=== PATIENT | male | born 1960 | race Caucasian/White ===

== ENCOUNTER → 2016-10-02 | Outpatient (CLI) | payer BC ==
--- NOTE | 2016-10-02 20:25 | US ---
EXAMINATION TYPE: US kidneys/renal and bladder DATE OF EXAM: 10/02/2016 4:05 PM COMPARISON: NONE CLINICAL HISTORY: R31.21 microscopic Hematuria. EXAM MEASUREMENTS: Right Kidney: 12.7 x 7.8 x 5.6cm cm Left Kidney: 13.4 x 6.3 x 5.6 cm Post Void Residual Volume: 6.0 mL Right Kidney: no hydro or masses seen Left Kidney: 1.6 x 1.3 x 1..4cm cyst noted at lower cortex Bladder: wnl Bilateral Jets seen: yes Normal Post Void Residual: Yes There is no evidence for hydronephrosis at this point in time. No nephrolithiasis is seen. The urin candido bladder is anechoic. Bilateral ureteral jets are seen. IMPRESSION: 1. There is a 1.6 cm left simple renal cyst.
== END | disposition home or self-care (01) ==
LOC: RADUSWWP 15:17
PROVIDERS: ATTEND Internal Medicine
DX: N28.1 Cyst of kidney, acquired (principal)
CPT/HCPCS: 76770

== ENCOUNTER 2017-02-25 07:27 | Day surgery (SDC) | payer BC ==
[2017-02-21 11:49] VITALS: BMI 38.5
[~2017-02-25 07:27] MED LIST: LACTATED RINGERS 1,000 ML IV SCH
[2017-02-25 07:46] VITALS: RESP 16; TEMP 97.9
[2017-02-25 07:48] LABS: Glucose,Whole Blood 113 mg/dL (75-99)
[2017-02-25] MEDS ORDERED: MIDAZOLAM 2 MG/2 ML VIAL ONE (07:56)
[2017-02-25] MEDS ORDERED: PROPOFOL 10 MG/ML 20 ML VIAL IV ONE (07:56)
[2017-02-25] MEDS ORDERED: LIDOCAINE 1% INJ 10MG/ML (20 ML MDV) ONE (07:56)
--- NOTE | 2017-02-25 08:23 | P.PCN ---
Date of Procedure: 02/25/17 Preoperative Diagnosis: Postoperative Diagnosis: Procedure(s) Performed: Procedure: Total colonoscopy. Preoperative diagnosis: Screening for neoplasia. Postoperative diagnosis: Mild sigmoid diverticulosis with no evidence of acute diverticulitis, strictures, polyps or cancer. Preparation: HalfLytely prep. Sedation: Was provided by anesthesia. Brief clinical history: The patient is a 56-year-old male who is scheduled for this evaluation for screening for neoplasia. He had a prior exam back in October 2010 that showed sigmoid diverticulosis, at that time, his preparation was less than ideal. There is family history of polyps in his father but no family history of colon cancer. The patient has no abdominal complaints, bleeding or anemia. Procedure: With the patient on his left lateral decubitus position and after informed consent and adequate sedation, the perianal area was inspected and it did not show any fissures or fistulas. There were no masses felt on digital rectal examination. The Olympus CFQ 160L video colonoscope was then inserted in the rectum in the usual fashion and advanced to the cecum. The mucosa appeared healthy. No polyps or tumors were seen. Occasional small diverticular orifices were seen scattered in the sigmoid with no evidence of acute diverticulitis or strictures. I retroflexed the endoscope in the rectum before the endoscope was withdrawn. The patient tolerated the procedure well. Plan: The patient was reassured. Discussed dietary measures. In the absence of family history of colon cancer I recommended a repeat exam in 10 years. He will follow up with you as planned. Implants: Indications for Procedure: Operative Findings: Description of Procedure:
[2017-02-25 08:40] VITALS: BP 132/80; PULSE 62
== END 2017-02-25 09:05 | disposition home or self-care (01) ==
LOC: ORWHC2ENDO 07:27
DX: Z12.11 Encounter for screening for malignant neoplasm of colon (principal); K57.30 Diverticulosis of large intestine without perforation or abscess without bleeding; E11.9 Type 2 diabetes mellitus without complications; K21.9 Gastro-esophageal reflux disease without esophagitis; I10 Essential (primary) hypertension; M19.90 Unspecified osteoarthritis, unspecified site; G25.81 Restless legs syndrome; M54.9 Dorsalgia, unspecified; G89.29 Other chronic pain; Z79.891 Long term (current) use of opiate analgesic; Z79.899 Other long term (current) drug therapy
CPT/HCPCS: J2250; J2001; J2704; G0121

== ENCOUNTER → 2017-10-31 | Outpatient (CLI) | payer BC ==
--- NOTE | 2017-10-31 15:03 | CT ---
EXAMINATION TYPE: CT thoracic spine wo con DATE OF EXAM: 10/31/2017 COMPARISON: MRI 07/03/2017 HISTORY: 57-year-old male Thoracic spine pain TECHNIQUE: Contiguous axial scanning of the thoracic spine without IV contrast. Coronal and sagittal reconstructions performed. CT DLP: 2433.6 mGycm Automated exposure control for dose reduction was used. FINDINGS: Vertebral body heights are maintained. Alignment is preserved. Prominent superior endplate Schmorl's node of T12. There is bridging anterior endplate spondylosis lower thoracic spine which can be seen in setting of DISH. Large right paracentral disc osteophyte complex at T3-T4 mildly narrowing the spinal canal likely fla ttening the right ventral cord as seen on MRI. Additional levels of small posterior disc osteophyte complexes are present such as at T5-T6, T6-T7, a nd T8-T9. These correspond with the disc bulge is seen on the 07/03/2017 MRI. Facet arthropathy lower lumbar spine greater on the left. On the left, changes result in moderate neuroforaminal stenosis at T2-T3 and mild at T10-T11. On the right, changes result in [id number] neural foraminal narrowing at T2-T3 and T3-T4. No prevertebral or paravertebral soft tissue abnormality seen. IMPRESSION: 1. BRIDGING ANTERIOR ENDPLATE SPONDYLOSIS LOWER THORACIC SPINE CAN BE SEEN IN THE SETTING OF DISH. 2. CHRONIC SUPERIOR ENDPLATE SCHMORL'S NODE OF T12. NO VERTEBRAL COMPRESSION COLLAPSE OR MALALIGNMENT . 3. LARGE RIGHT PARACENTRAL DISC OSTEOPHYTE COMPLEX AT T3-T4 CORRESPONDS TO THE FINDING ON MRI. THIS C AUSES MILD SPINAL CANAL STENOSIS WITH FLATTENING OF THE RIGHT VENTRAL CORD, BETTER APPRECIATED BY MRI . 4. ADDITIONAL SMALLER DISC OSTEOPHYTE COMPLEXES FROM T5 THROUGH T9 LEVELS. 5. FACET ARTHROPATHY CONTRIBUTING TO MODERATE LEFT NEURAL FORAMINAL STENOSIS AT T2-T3. VARIABLE MILD NEUROFORAMINAL NARROWING AT OTHER LEVELS ABOVE.
== END | disposition home or self-care (01) ==
LOC: RADCTMAIN 13:06
PROVIDERS: ATTEND Physical Medicine & Rehabilitation
DX: M48.04 Spinal stenosis, thoracic region (principal); M99.72 Connective tissue and disc stenosis of intervertebral foramina of thoracic region; M47.815 Spondylosis without myelopathy or radiculopathy, thoracolumbar region; M51.44 Schmorl's nodes, thoracic region; M46.94 Unspecified inflammatory spondylopathy, thoracic region; M48.062 Spinal stenosis, lumbar region with neurogenic claudication; M51.26 Other intervertebral disc displacement, lumbar region; M51.36 Other intervertebral disc degeneration, lumbar region; E11.42 Type 2 diabetes mellitus with diabetic polyneuropathy
CPT/HCPCS: 72128

== ENCOUNTER 2018-09-11 07:02 | Day surgery (SDC) | payer BC ==
[2018-09-08 16:17] VITALS: BMI 38.5
[2018-09-11 07:39] VITALS: TEMP 97.5
[2018-09-11] MEDS ORDERED: LIDOCAINE 1% 20 ML VIAL (10MG/ML) FOR IV START INTRADERMA ONE (07:42)
[2018-09-11] MEDS: LACTATED RINGERS 1,000 ML IV SCH ×2 (07:42→07:44)
[2018-09-11 07:47] LABS: Glucose,Whole Blood 100 mg/dL (75-99)
[2018-09-11 08:09] VITALS: RESP 16
--- NOTE | 2018-09-11 08:10 | P.PCN ---
Date of Procedure: 09/11/18 Procedure(s) Performed: Procedure: Esophagogastroduodenoscopy and biopsy. Preoperative diagnosis: Chronic reflux symptoms symptomatic despite therapy. Postoperative diagnosis: 1. Small hiatal hernia with no obvious esophagitis or complicated reflux disease. 2. Mild gastritis and duodenitis. 3. Multiple biopsies obtained from the duodenum, antrum and esophagus. Preparation and sedation: Was provided by anesthesia. Brief clinical history: The patient is a 58-year-old male with history of chronic reflux that has been maintained on omeprazole. He has been having recurrent episodes of nocturnal reflux waking him up from sleep. No dysphagia, bleeding or other alarm symptoms. This evaluation is to assess for esophagitis , complicated reflux disease or other pathology. Procedure: With the patient on his left lateral decubitus position and after informed consent and adequate sedation, I passed the Olympus GIF-H 190 video upper endoscope through the cricopharyngeus down the esophagus. GE junction was around 42-43 cm from the incisors and there was a small sliding hiatal hernia but no obvious esophagitis or complicated reflux disease. The endoscope was then passed into the stomach which was insufflated with air and inspected in detail including the retroflex view in the cardia. There was minimal mottling and erythema in the antrum but no ulcers or erosions. Pyloric channel did not show any ulcers. Duodenal bulb showed erythema and some mottling but no ulcers, erosions or bleeding. Post bulbar area and descending duodenum did not show obvious abnormalities. I obtained biopsies from the duodenum, antrum and esophagus then the endoscope was withdrawn. The patient tolerated the procedure well. Plan: The patient was reassured. He will continue antireflux diet and measures. Will await biopsy results and make additional recommendations. I will keep you updated on his progress.
[2018-09-11 08:20] LABS: Glucose,Whole Blood 102 mg/dL (75-99)
[2018-09-11 08:23] VITALS: BP 128/84; PULSE 57
== END 2018-09-11 08:56 | disposition home or self-care (01) ==
LOC: ORWHC2ENDO 07:02
DX: K29.70 Gastritis, unspecified, without bleeding (principal); K29.80 Duodenitis without bleeding; K44.9 Diaphragmatic hernia without obstruction or gangrene; E11.9 Type 2 diabetes mellitus without complications; I10 Essential (primary) hypertension; Z79.84 Long term (current) use of oral hypoglycemic drugs; Z79.899 Other long term (current) drug therapy
CPT/HCPCS: 43239; 88305; 88342

== ENCOUNTER → 2020-04-23 | Outpatient (CLI) | payer BC ==
--- NOTE | 2020-04-23 15:28 | MR ---
EXAMINATION TYPE: MR lumbar spine wo con DATE OF EXAM: 04/23/2020 COMPARISON: None HISTORY: Chronic LBP, BLE radic TECHNIQUE: Multiplanar, multisequence images of the lumbar spine were acquired. L1-L2: Posterior left paracentral disc herniation causes minimal anterior mass effect on the thecal s ac. No significant spinal stenosis or foraminal encroachment. L2-L3: Right posterior paracentral disc protrusion causes some slight anterior lateral mass effect on the thecal sac. No significant spinal stenosis or foraminal encroachment. L3-L4: Circumferential posterior disc bulge somewhat eccentric towards the right causing anterolatera l mass effect on the thecal sac, there is moderate to severe spinal stenosis. Hypertrophy of the liga mentum flavum causes some posterior lateral mass effect on the thecal sac. Circumferential extension disc causes some right-sided foraminal encroachment. L4-L5: There is hypertrophic change noted within the facets causing posterior lateral mass effect on the thecal sac, trefoil appearance of the thecal sac. There is some encroachment on the right neural foramen by the facet. Minimal posterior disc bulge causes only slight anterior mass effect on the the neo sac. No significant spinal stenosis. L5-S1: There is facet arthropathy change present. No significant spinal stenosis. No evident disc her niation, facet encroaches somewhat on the neural foramen greater on the right Lumbar segments are intact. No paraspinal masses are identified. Conus medullaris has a normal appe arance. Mild anterolisthesis grade 1 L4-5. Loss of disc height signal is present at L1-2, L3-4, L4-5. There is a spinal curvature. Abdominal aorta measures 3.3 cm in the infrarenal location. Common michelle c artery on the right measures approximately 2.3 cm. Probable exophytic cyst posteriorly at the left kidney. IMPRESSION: Degenerative disc disease, facet arthropathy, foraminal encroachment and spinal stenosis as described .Ectasia of the infrarenal abdominal aorta, right common iliac artery, consider follow-up.
== END | disposition home or self-care (01) ==
LOC: RADMRIMAIN 13:49
PROVIDERS: ATTEND Internal Medicine
DX: M48.061 Spinal stenosis, lumbar region without neurogenic claudication (principal); M51.36 Other intervertebral disc degeneration, lumbar region; M47.816 Spondylosis without myelopathy or radiculopathy, lumbar region; M47.817 Spondylosis without myelopathy or radiculopathy, lumbosacral region
CPT/HCPCS: 72148

== ENCOUNTER → 2021-03-18 | Outpatient (CLI) | payer BC ==
--- NOTE | 2021-03-19 04:58 | MR ---
EXAMINATION TYPE: MR thoracic spine wo con DATE OF EXAM: 03/18/2021 COMPARISON: None HISTORY: Chronic back pain. Multiplanar multiecho imaging of the thoracic spine without contrast. Thoracic vertebra have fairly normal alignment. There is mild multilevel thoracic disc space narrowin g. There is no compression fracture. I see no focal bone destruction. Thoracic spinal cord has fairly normal signal pattern. There is no edema. At T3-4 there is posterior disc herniation with some conta ct with the thoracic spinal cord. This is in the midline and towards the right side. There is some ef facement of the cord. There is no spinal mass. The posterior elements are intact. IMPRESSION: No fracture. Mild multilevel degenerative disc space narrowing. Focal posterior disc herniation at T3 -4 on the right side with some impingement on the thoracic spinal cord. There is also posterior mild disc herniation T6-7 and T7-T8 and T8-T9 without significant impingement on the spinal cord.
== END | disposition home or self-care (01) ==
LOC: RADMRIMAIN 11:38
PROVIDERS: ATTEND Physical Medicine & Rehabilitation
DX: M51.24 Other intervertebral disc displacement, thoracic region (principal); M51.34 Other intervertebral disc degeneration, thoracic region
CPT/HCPCS: 72146

== ENCOUNTER → 2021-04-19 | Outpatient (CLI) | payer BC ==
[2021-04-19 13:58] VITALS: BP 96/66; PULSE 68; RESP 18; TEMP 98.2
--- NOTE | 2021-04-19 14:22 | P.PAINCN ---
History of Present Illness - Reason for Consult Consult date: 04/19/21 lumbar back pain, and low thoracic pain - Chief Complaint lumbar back pain, and low thoracic area pain - History of Present Illness Mr. Verduzco is a [id number]-ksim-[id number] pleasantmalecame to the [facility] for initial evaluation for low thoracic pain, and lumbar back pain. Patient had a history of fall many years ago status post T12-L1, and L2 chronic compression deformity.. [facility]. Patient had recent right-sided S1 transforaminal epidural steroid injection on 02/02/2021 with 70% pain relief. Patient also had thoracic medial branch block more than 3 years ago with good pain relief. Patient came here today for thoracic medial branch block referred by [facility] pain physician. Patient has ongoing pain for many years. Patient describes pain is aching, throbbing, constant type of pain. Pain is radiating to right lower extremity sometimes causing numbness and tingling sensation. Patient rated pain levels are 7-8 out of 10 in severity. With the help of medications pain levels are 5-6out of 10 in severity. Activities making pain worse. Medications, resting , interventional procedures helping in relieving patient's pain. Patient pain some days better than others. Overall activities decreased secondary to pain. Because of the pain sometimes patient is feeling lack of sleep, interest, and energy. Denied any bowel or bladder problems at this time. Patient is not using any for walking support. Patient denied any suicidal ideas/homicidal ideas at this time. Patient denied any red flag symptoms related to pain. Review of Systems 1- Constitutional : Patient denies anorexia, no chills , no fever , no night sweats , no change of appetite, no lethargy 2- Ears : No ear ache , no tinnitus , no ear discharge , no change in hearing 3-Nose, Mouth ,Throat ; no bleeding gums, no sore throat , no epistaxis , no hoarseness , no nose pain , no voice change 4-Cardiovascular : Denies chest pain, denies lightheadedness , no orthopnea , no palpitation , no paroxysmal nocturnal dyspnea no syncope , no leg edema , no irregular heartbeat 5-Respiratory : Denies cough , no dyspnea , no hemoptysis , no sleep apnea, no wheezing , no excessive sputum 6-Gastrointestinal : No jaundice , no nausea , no vomiting ,No abdominal pain , no bloating , no coffee-ground emesis , no hematochezia , No melena , 7-Genitourinary : No hematuria , no discharge , no urinary frequency , no urinary hesitancy , no incontinence, No dysuria 8-Musculoskeletal : No gait dysfunction , report low back pain , 9- Neurological : no ataxia , no aphasia ,no balance difficulties , no change in visions , no change in speech , no tremor , no vertigo , no sezure , no memory loss 10-Psychatric : no anexity ,no depression , no suicidal ideation , no change in appetite , no memory loss , no hallucination 11- Endocrine : no cold intolerence , no nocturia , no polyuria , no polydypsia , no heat intolerance 12-Hematologic : no easy bleeding , no easy brusing , 13-Allergic / immunology : no angioedema , no wheezing ,no allergic rhinitis no glutean intolerence 14-Integumentary : no brttle nails , no change hair / nails , no hirsutism no depigmentation , no foot/leg ulcers Past Medical History Past Medical History: Diabetes Mellitus, GERD/Reflux, Hypertension, Musculoskeletal Disorder, Osteoarthritis (OA) Additional Past Medical History / Comment(s): NEUROPATHY, RLS, SPINAL STENOSIS, DDD, HX OF FX DISC, BACK PAIN, constipation. History of Any Multi-Drug Resistant Organisms: None Reported Past Surgical History: Appendectomy, Hernia Repair Additional Past Surgical History / Comment(s): BILATERAL THUMB SURGERY. Past Anesthesia/Blood Transfusion Reactions: No Reported Reaction Smoking Status: Former smoker - Past Family History Mother Family Medical History: CVA/TIA Medications and Allergies Home Medications Medication Instructions Recorded Confirmed Type HYDROcodone/APAP 7.5-325MG [[place] 1 tab PO BID 02/21/17 04/18/21 History 7.5-325] Hydrochlorothiazide 12.5 mg PO DAILY 02/21/17 04/18/21 History [hydroCHLOROthiazide] Metoprolol Succinate [Toprol XL] 50 mg PO HS 02/21/17 04/18/21 History Omeprazole 20 mg PO HS 02/21/17 04/18/21 History Pregabalin [Lyrica] 100 mg PO TID 02/21/17 04/18/21 History amLODIPine [Norvasc] 5 mg PO QAM 02/21/17 04/18/21 History rOPINIRole HCL [Requip] 0.5 mg PO HS 02/21/17 04/18/21 History sitaGLIPtin [Januvia] 100 mg PO DAILY 02/21/17 04/18/21 History Allergies Allergy/AdvReac Type Severity Reaction Status Date / Time No Known Allergies Allergy Verified 04/18/21 14:53 Physical Exam Vitals: Vital Signs Temp Pulse Resp BP Pulse Ox 04/19/21 13:51 98.2 F 68 18 96/66 96 General: Well-developed, well-nourished, no acute distress HEENT: Normocephalic, and atraumatic Neck: Supple, no neck swelling Psychiatric: Appropriate mood, and affect 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 Sensation grossly intact Lower extremity: Normal strength, and decreased range of motion secondary to pain Lumbar spine: Paravertebral tenderness: positive Lumbar facet load test : positive Sacroiliac joint tenderness: Positive Thigh thrust test: negative Multiple trigger point positive over lumbar, and thoracic area Lower thoracic spinal, and paraspinal muscle tenderness positive. Results Results: MRI of the lumbar spine done on 04/23/2020 showed degenerative disc disease, facet arthropathy, foraminal encroachment, no spinal canal stenosis. Mild anterolisthesis grade 1 L4-L5. Loss of disc height signal present at L1-L2, L3-L4, L4-L5. There is a spinal curvature. MRI of the thoracic spine done on 03/18/2021 showed No fracture. Mild multilevel degenerative disc space narrowing. Focal posterior disc herniation at T3-T4 on the right side with some impingement on the thoracic spinal cord. There is also posterior mild disc herniation at T6-T7, T7-T8, and T8-T9 level without significant impingement on spinal cord. Assessment and Plan Assessment: lumbar spondylosis without myelopathy Thoracic spondylosis without myelopathy Myofascial pain syndrome, and chronic pain syndrome Plan: #1 Opioid, and psychological risk tools, and scores were reviewed. Diagnoses, prognosis, and multiple treatment options including but not limited to physical therapy, interventional therapy, adjunct medication therapy, narcotic medication, and surgical options were discussed with the patient. And all questions were answered to the patient's satisfaction. #2 treatment plan agreement : Patient was thoroughly discussed regarding the treatment options, alternatives, and importance of exercises as tolerated. Patient clearly understood. #3 Patient was counseled on importance of regular exercise. Including el chi, aerobic exercises as tolerated. Which helps for chronic pain, and overall well- being. Patient also counseled regarding importance of weight control rolling chronic pain, and overall other health issues. By altering diet habits, minimizing sugar intake, and processed foods helps in minimizing Inflammation. Also discussed with the patient regarding intermittent fasting. #4 investigations: MAPS- reviewed , urine drug test- not done #5 diagnostic tests: none #6 consultation : none # 7 interventional procedures: bilateral T11-T12, T12-L1 medial branch block. Procedure, complications, alternatives discussed with the patient. #8 medications magnesium oxide 400 mg by mouth daily Medication side effects, complications, long-term consequences discussed with the patient. Patient recommended to contact the pain clinic if noticed any issues with given medications. #9 morphine milligrams equivalents dose ( MME) per day: 0 from the pain clinic # 10 TENS unit's, and percussion massage device #11 disposition: scheduled to follow up with pain clinic in 4 weeks duration. Time with Patient: Greater than 30 PQRS Measure Charge Sheet Measure #130: Documentation of Current Meds in Medical Chart: Patient's medications documented in chart Measure #226: Tobacco Use: Screen & Cessation Intervention: Pt not a tobacco user Measure #111: Pneumonia Vaccination: Pneumococcal vaccine NOT administered or previously given Measure #47: Advance Care Plan: Advance care planning discussed & documented, pt chose/unable to give Measure #412: Opioid Treatment Agreement: No documentation of signed opioid treatment agreement Measure #408: Opioid Therapy Follow-up Evaluation: Patient had NO f/u eval minimum every 3 months during opioid therapy Measure #317: Preventitive Care & Scrn High Bld Press & F/U: Pre-hypertensive or hypertensive BP documented, pt will f/u with PCP Measure #128: Body Mass Index (BMI) Screening & Follow-up: BMI documented ABOVE normal parameters - f/u documented Measure #131: Pain Assessment & Follow-up: Pain positive & plan documented Measure #431: Unhealthy Alcohol Use Preventative Care & Scrn: Patient not identified as an unhealthy alcohol user Mode of Arrival: Ambulatory - Pain Location Back Non-Pharmacological Interventions: Home Exercise, Ice, Inactivity, Physical Therapy, Stretching Pharmacological Interventions: Block, Epidural, Medication PQRS Narrative: Smoking Status Former smoker Blood Pressure 96/66 Pain Intensity [Back] 10 Scale Used Numeric (1 - 10) Hx Alcohol Use (MH) No Home Medications: Ambulatory Orders HYDROcodone/APAP 7.5-325MG [[place] 7.5-325] 1 tab PO BID 02/21/17 Hydrochlorothiazide [hydroCHLOROthiazide] 12.5 mg PO DAILY 02/21/17 Metoprolol Succinate [Toprol XL] 50 mg PO HS 02/21/17 Omeprazole 20 mg PO HS 02/21/17 Pregabalin [Lyrica] 100 mg PO TID 02/21/17 amLODIPine [Norvasc] 5 mg PO QAM 02/21/17 rOPINIRole HCL [Requip] 0.5 mg PO HS 02/21/17 sitaGLIPtin [Januvia] 100 mg PO DAILY 02/21/17
== END ==
LOC: PNWHC3 13:04
DX: M47.816 Spondylosis without myelopathy or radiculopathy, lumbar region (principal); M47.814 Spondylosis without myelopathy or radiculopathy, thoracic region; M79.18 Myalgia, other site; G89.4 Chronic pain syndrome; E11.9 Type 2 diabetes mellitus without complications; I10 Essential (primary) hypertension; M19.90 Unspecified osteoarthritis, unspecified site; Z87.891 Personal history of nicotine dependence
CPT/HCPCS: 99211

== ENCOUNTER 2021-06-02 11:07 | Day surgery (SDC) | payer BC ==
[2021-05-31 15:54] VITALS: BMI 37.2
[2021-06-02 12:02] LABS: Glucose,Whole Blood 118 mg/dL (75-99)
[2021-06-02 12:04] VITALS: TEMP 97.3
[2021-06-02] MEDS ORDERED: LACTATED RINGERS 1,000 ML IV ONE (12:05)
[2021-06-02] MEDS ORDERED: MIDAZOLAM 2 MG/2 ML VIAL ONE (12:38)
[2021-06-02] MEDS ORDERED: fentaNYL (PF) 50 MCG/ML 2 ML AMP ONE (12:38)
[2021-06-02] MEDS ORDERED: ROPIVACAINE 5MG/ML 20ML VIAL ONE (12:38)
[2021-06-02] MEDS ORDERED: methylPREDNISolone ACETATE 40 MG/ML 1 ML VIAL ONE (12:38)
--- NOTE | 2021-06-02 12:58 | P.PCN ---
Date of Procedure: 06/02/21 Procedure(s) Performed: PREOPERATIVE DIAGNOSIS : 1- Thoracic spondylosis with Facet Arthropathy without myelopathy . 2- Lumber spondylosis with lumbar facet arthropathy POSTOPERATIVE DIAGNOSIS: Same as preop diagnosis. PROCEDURE: Diagnostic bilateral T11, T12 , L1 medial branch block under fluoroscopy guidance(fluoroscopy images available in the radiology Department ) ( To target the facet joint between Bilateral T11-12 , T12-L1 ) ANESTHESIA:,monitered anesthesia care as per anesthesia department . EBL: Minimal COMPLICATION: None PROCEDURE INDICATION: Chronic low back pain secondary to Facet arthropathy unresponsive to conservative treatment. PROCEDURE DESCRIPTION: the patient was seen and identified in the preop holding area , risks and benefits and possible complications of the procedure and alternative were discussed with the patient, and the patient agreed to proceed with the procedure and signed the consent and vital signs monitored during the procedure and fluoroscopy was used to maximize the benefit and accuracy of the needle placement, and sedation was given to decrease patient anxiety, patient was taken to the procedure room and placed in prone position vital signs monitored in the back prepped with chlorhexidine X3 then under strict sterile technique using a right oblique fluoroscopy ,the junction of the transverse process and the superior articulating process of the right R11, T12 ,L1 vertebra which corresponding to the fluoroscopy image of the eye of the Saravanan dog on the block side for the medial branches and subsequently , after local infiltration of skin and subcu tissuies with Ropivacaine 0.5 % , one mL at each level ,then 22-gauge Quincke-type needles , 3 needle was used , each one of them placed at the junction of the base of the transverse process and the superior articular process at the appropriate level, and the needle was advanced until the periosteum contacted, needle placement confirmed with AP oblique and lateral view and after appropriate needle placement confirmed, and after negative aspiration for heme and CSF and there was no paresthesia 1-1/2 mL of Ropivacaine 0.5% mixed with 20 mg Depo-Medrol , then half mL injected at each level after negative aspiration the needle subsequently removed and the same procedure repeated for the left side at left side at T11 ,T12 ,L1 levels. At the end of the procedure and the needles removed and a bandage applied after the skin was cleaned the cleaning solution patient taken to recovery room in stable condition and monitors in the recovery room for 20-30 minutes and discharged home in stable condition after discharge criteria met and patient will follow up with the pain clinic in 2-4 weeks
[2021-06-02] MEDS ORDERED: IV FLUID CONTINUATION 600 ML IV ONE (13:05)
[2021-06-02 13:22] VITALS: BP 131/75; PULSE 56; RESP 16
--- NOTE | 2021-06-02 13:43 | XR ---
EXAMINATION TYPE: XR chest 1V portable DATE OF EXAM: 06/02/2021 COMPARISON: NONE HISTORY: Rule out pneumothorax TECHNIQUE: Single frontal view of the chest is obtained. FINDINGS: There is no focal air space opacity, pleural effusion, or pneumothorax seen. The cardiac silhouette size is within normal limits. The osseous structures are intact. IMPRESSION: No acute process.
--- NOTE | 2021-06-02 14:25 | FL ---
EXAMINATION TYPE: FL guided pain mgmt statistic DATE OF EXAM: 06/02/2021 CLINICAL HISTORY: Low back pain. TECHNIQUE: Fluoroscopy. COMPARISON: None. FINDINGS: Fluoroscopic guidance was provided during pain relief procedure performed by Dr. Orlando . A total of 13 seconds of fluoroscopic time was utilized during the procedure and 4 spot images are acquired. Images acquired shows needle localization at several levels in the lumbar spine. IMPRESSION: As Above.
== END 2021-06-02 14:06 | disposition home or self-care (01) ==
LOC: ORPAIN 11:07
PROVIDERS: ATTEND Specialist
DX: M47.814 Spondylosis without myelopathy or radiculopathy, thoracic region (principal); G89.29 Other chronic pain; M47.816 Spondylosis without myelopathy or radiculopathy, lumbar region
CPT/HCPCS: 64490; 64491; 71045; J2250; J1030; J3010; J2795

== ENCOUNTER → 2021-07-10 | Outpatient (CLI) | payer BC ==
--- NOTE | 2021-07-10 12:43 | P.PN ---
Subjective Progress Note Date: 07/10/21 This is a follow-up visit for this 60 years old male with a chronic history of severe mid and low back pain he statesthoracic and lumbar spondylosis with facet arthropathy thoracic and lumbar area, and clearly we have done diagnostic medial branch blocks at T11-T12 and L1 bilaterally, reported that he got significant improvement of his pain after the block, he to have occasional muscle spasm in the lower extremity mostely at night, denies any motor or sensory deficit, denies any fever or night sweats, he continues to use Lyrica as an milligrams 3 times a day and [place] 7.5/325 twice a day when necessary , he is getting prescription refill from his primary care, Clinical examination General: Well-developed, well-nourished, no acute distress HEENT: Normocephalic, and atraumatic Neck: Supple, no neck swelling Psychiatric: Appropriate mood, and affect [employer]: No focal neurological deficits Musculoskeletal: Upper extremity: Normal strength, and range of motion. Sensation grossly intact Lower extremity: Normal strength, and decreased range of motion secondary to pain Lumbar spine: Paravertebral tenderness: positive Lumbar facet load test : positive Sacroiliac joint tenderness: Positive Thigh thrust test: negative Multiple trigger point positive over lumbar, and thoracic area Lower thoracic spinal, and paraspinal muscle tenderness positive. Results MRI of the lumbar spine done on 04/23/2020 showed degenerative disc disease, facet arthropathy, foraminal encroachment, no spinal canal stenosis. Mild anterolisthesis grade 1 L4-L5. Loss of disc height signal present at L1-L2, L3-L4, L4-L5. There is a spinal curvature. MRI of the thoracic spine done on 03/18/2021 showed No fracture. Mild multilevel degenerative disc space narrowing. Focal posterior disc herniation at T3-T4 on the right side with some impingement on the thoracic spinal cord. There is also posterior mild disc herniation at T6-T7, T7-T8, and T8-T9 level without significant impingement on spinal cord. Assessment: lumbar spondylosis without myelopathy Thoracic spondylosis without myelopathy Myofascial pain syndrome, and chronic pain syndrome Plan: #1 Opioid, and psychological risk tools, and scores were reviewed. Diagnoses, prognosis, and multiple treatment options including but not limited to physical therapy, interventional therapy, adjunct medication therapy, narcotic medication, and surgical options were discussed with the patient. And all questions were answered to the patient's satisfaction. #2 treatment plan agreement : Patient was thoroughly discussed regarding the treatment options, alternatives, and importance of exercises as tolerated. Patient clearly understood. #3 Patient was counseled on importance of regular exercise. Including el chi, aerobic exercises as tolerated. Which helps for chronic pain, and overall well- being. Patient also counseled regarding importance of weight control rolling chronic pain, and overall other health issues. By altering diet habits, minimizing sugar intake, and processed foods helps in minimizing Inflammation. Also discussed with the patient regarding intermittent fasting. # interventional procedures: repeate bilateral T11-T12, T12-L1 medial branch block. Procedure, complications, alternatives discussed with the patient. PQRS Measure Charge Sheet Measure #130: Documentation of Current Meds in Medical Chart: Patient's medications documented in chart Measure #226: Tobacco Use: Screen & Cessation Intervention: Pt not a tobacco user Measure #111: Pneumonia Vaccination: Pneumococcal vaccine NOT administered or previously given Measure #47: Advance Care Plan: Advance care planning discussed & documented, pt chose/unable to give Measure #412: Opioid Treatment Agreement: No documentation of signed opioid treatment agreement Measure #408: Opioid Therapy Follow-up Evaluation: Patient had NO f/u eval minimum every 3 months during opioid therapy Measure #317: Preventitive Care & Scrn High Bld Press & F/U: Pre-hypertensive or hypertensive BP documented, pt will f/u with PCP Measure #128: Body Mass Index (BMI) Screening & Follow-up: BMI documented ABOVE normal parameters - f/u documented Measure #131: Pain Assessment & Follow-up: Pain positive & plan documented Measure #431: Unhealthy Alcohol Use Preventative Care & Scrn: Patient not identified as an unhealthy alcohol user Mode of Arrival: Ambulatory Assessment and Plan Time with Patient: Less than 30
[2021-07-10 12:45] VITALS: BP 148/79; PULSE 76; RESP 18; TEMP 97.6
== END ==
LOC: PNWHC3 12:02
PROVIDERS: ATTEND Specialist
DX: M47.816 Spondylosis without myelopathy or radiculopathy, lumbar region (principal); M47.814 Spondylosis without myelopathy or radiculopathy, thoracic region; M79.18 Myalgia, other site; G89.4 Chronic pain syndrome; Z87.891 Personal history of nicotine dependence
CPT/HCPCS: 99211

== ENCOUNTER 2021-09-15 11:26 | Day surgery (SDC) | payer BC ==
[2021-09-14 10:43] VITALS: BMI 35.9
[2021-09-15 12:02] VITALS: TEMP 97.1
[2021-09-15] MEDS ORDERED: LACTATED RINGERS 1,000 ML IV ONE (12:13)
[2021-09-15 12:14] LABS: Glucose,Whole Blood 120 mg/dL (75-99)
[2021-09-15] MEDS ORDERED: fentaNYL (PF) 50 MCG/ML 2 ML AMP ONE (12:38)
[2021-09-15] MEDS ORDERED: MIDAZOLAM 2 MG/2 ML VIAL ONE (12:38)
[2021-09-15] MEDS ORDERED: ROPIVACAINE 5MG/ML 20ML VIAL ONE (12:39)
[2021-09-15] MEDS ORDERED: methylPREDNISolone ACETATE 40 MG/ML 1 ML VIAL ONE (12:39)
--- NOTE | 2021-09-15 12:59 | P.PCN ---
Date of Procedure: 09/15/21 Procedure(s) Performed: PREOPERATIVE DIAGNOSIS : 1- Thoracic spondylosis with Facet Arthropathy without myelopathy . 2- Lumber spondylosis with lumbar facet arthropathy POSTOPERATIVE DIAGNOSIS: Same as preop diagnosis. PROCEDURE: Diagnostic bilateral T11, T12 , L1 medial branch block under fluoroscopy guidance(fluoroscopy images available in the radiology Department ) ( To target the facet joint between Bilateral T11-12 , T12-L1 )#2nd ANESTHESIA:,monitered anesthesia care as per anesthesia department . EBL: Minimal COMPLICATION: None PROCEDURE INDICATION: Chronic low back pain secondary to Facet arthropathy unresponsive to conservative treatment. PROCEDURE DESCRIPTION: the patient was seen and identified in the preop holding area , risks and benefits and possible complications of the procedure and alternative were discussed with the patient, and the patient agreed to proceed with the procedure and signed the consent and vital signs monitored during the procedure and fluoroscopy was used to maximize the benefit and accuracy of the needle placement, and sedation was given to decrease patient anxiety, patient was taken to the procedure room and placed in prone position vital signs monitored in the back prepped with chlorhexidine X3 then under strict sterile technique using a right oblique fluoroscopy ,the junction of the transverse process and the superior articulating process of the right R11, T12 ,L1 vertebra which corresponding to the fluoroscopy image of the eye of the Saravanan dog on the block side for the medial branches and subsequently , after local infiltration of skin and subcu tissuies with Ropivacaine 0.5 % , one mL at each level ,then 22-gauge Quincke-type needles , 3 needle was used , each one of them placed at the junction of the base of the transverse process and the superior articular process at the appropriate level, and the needle was advanced until the periosteum contacted, needle placement confirmed with AP oblique and lateral view and after appropriate needle placement confirmed, and after negative aspiration for heme and CSF and there was no paresthesia 1-1/2 mL of Ropivacaine 0.5% mixed with 20 mg Depo-Medrol , then half mL injected at each level after negative aspiration the needle subsequently removed and the same procedure repeated for the left side at left side at T11 ,T12 ,L1 levels. At the end of the procedure and the needles removed and a bandage applied after the skin was cleaned the cleaning solution patient taken to recovery room in stable condition and monitors in the recovery room for 20-30 minutes and discharged home in stable condition after discharge criteria met and patient will follow up with the pain clinic in 2-4 weeks
[2021-09-15] MEDS ORDERED: IV FLUID CONTINUATION 1,000 ML IV ONE (13:02)
[2021-09-15 13:19] VITALS: BP 121/77; PULSE 59; RESP 16
--- NOTE | 2021-09-15 13:36 | FL ---
Fluoroscopy History: THORACIC PAIN facet steroid injection 3 levels, bilateral, 7sec fl time
== END 2021-09-15 13:34 | disposition home or self-care (01) ==
LOC: ORPAIN 11:26
PROVIDERS: ATTEND Specialist
DX: G89.29 Other chronic pain (principal); M47.816 Spondylosis without myelopathy or radiculopathy, lumbar region; M47.814 Spondylosis without myelopathy or radiculopathy, thoracic region
CPT/HCPCS: 64490; 64491; J2250; J1030; J3010; J2795

== ENCOUNTER → 2021-10-04 | Outpatient (CLI) | payer BC ==
--- NOTE | 2021-10-04 13:14 | P.PN ---
Subjective Progress Note Date: 10/04/21 Principal diagnosis: A 61 yr old male with a history of severe and chronic mid back pain secondary to thoracic degenerative disc diseases and spondylosis with facet arthropathy presents today for valuation status post facet blocks of the medial branches bilateral T11-T12, T12-L1 #2. Patient admits to 85-90% pain relief for 2-3 days, then the pain started to escalate thereafter. Pain level is currently at 4 out of 10 in intensity, dull, achy, twisty, pressure-type sensation. Patient also states it feels like a "fist in my back." Pain is provoked to a 10 /10 in intensity by abduction of the upper extremities or sitting upright for periods of 30 minutes or more. Pain is alleviated with medications, topicals CBD cream, ice, heat occasionally, physical therapy 7 years ago which was ineffective, daily home exercise regimen, laying reclining and rest. Interventional pain procedures completed include FB of the Medial Branches T11- T12, T12-L1 #2. Patient is currently on [place] BID prn. Lyrica, Tylenol OTC. Patient denies any side effects of the medication(s), denies excessive drowsiness or sleepiness, denies suicidal ideation and reports that the current pain medication is helping to control the pain and improve activities of daily living. Patient denies any motor or sensory deficits. Patient denies any fever or night sweats, denies any change in the bowel movements or urination. Physical Examination: -Constitutional: Cooperative. Not in acute distress . -HEENT: Neck is supple. No lymphadenopathy. No thyromegaly. Normal thyroid size. Eyes: No ptosis , no icterus, no photophobia. ENT: No auditory deficits. Normal oropharynx. No Thrush. - Respiratory: Chest clear to auscultations bilaterally. No wheezing. No rhonchi. - Cardiovascular: Regular rate and rhythm. S1 / S2 , no S3 , no S4. - Gastrointestinal: Abdomen soft no tenderness. Bowel sounds positive in all four quadrants. No organomegaly. - Genitourinary: Deferred. - Neurologic: Cranial nerve II to XII intact. No focal neurological deficits . - Psychatric: Alert & oriented x 3. Matching mood & appropriate affect. Judgment and insight intact. - Lymphatic: No Lymphadenopathy. - Musculoskeletal: Cervical spine: Muscle bulk/ tone/ strength in the bilateral upper extremities normal. Facet loading test cervical area positive. Thoracic spine: Tenderness to palpation over the bilateral facets T11-T12, T12-L1 with overlying paraspinal muscle spasms Lumbar spine: Motor bulk/ tone/ strength lower extremities , thigh and legs : 5/5 Deep tendon reflexes : Normal Knee Jerk. Normal Ankle Jerk . Vertebral body tenderness to palpation over Lumbar Facet Loading Test positive Straight Leg Raise: positive at 30 degrees right side/ left side Gaenslen's Test positive Sacral spine : Severe tenderness over the Sacroiliac joint: right side / left side Range of motion: Flexion of the lumbar spine <60 degrees Range of motion: Extension of the lumbar spine <20 degrees Gaenslen's Test positive Karen test: positive right side / left side Assessment and plan: Chronic mid back pain secondary to thoracic degenerative disc disease , spondylosis with facet arthropathy without myelopathy Recommendation of RFA of bilateral T11-T12, T12 L1. Risks, benefits of procedure discussed and patient verbalized understanding. Denies anticoagulant use. Admits to medical history of diabetes with Januvia use. Discontinuation/ continuation instructions lisa-procedure discussed. All patient questions answered MAPS reviewed and it was appropriate. I have spent 31 minutes on patient care today. Dr Orlando was available by phone for the evaluation of this patient. The time was used to review the medical records including relevant urine studies and Prescription history (MAPs), review of the available imaging, evaluation and examination of the patient, coordination of care with the medical staff and if applicable referring physicians, as well as creation of the medical record PQRS Measure Charge Sheet PQRS Narrative: Smoking Status Former smoker Hx Alcohol Use (MH) No Home Medications: Ambulatory Orders HYDROcodone/APAP 7.5-325MG [[place] 7.5-325] 1 tab PO BID 02/21/17 Hydrochlorothiazide [hydroCHLOROthiazide] 12.5 mg PO DAILY 02/21/17 Metoprolol Succinate [Toprol XL] 50 mg PO HS 02/21/17 Pregabalin [Lyrica] 100 mg PO TID 02/21/17 amLODIPine [Norvasc] 5 mg PO QAM 02/21/17 rOPINIRole HCL [Requip] 0.5 mg PO HS 02/21/17 sitaGLIPtin [Januvia] 100 mg PO DAILY 02/21/17 Zantac Otc Prn 1 tab PO DAILY PRN 09/14/21
[2021-10-04 13:22] VITALS: BP 147/87; PULSE 59; RESP 18; TEMP 98
== END ==
LOC: PNWHC3 12:00
PROVIDERS: ATTEND Physician Assistant Medical
DX: M47.814 Spondylosis without myelopathy or radiculopathy, thoracic region (principal); M51.34 Other intervertebral disc degeneration, thoracic region; G89.29 Other chronic pain; E11.9 Type 2 diabetes mellitus without complications; Z79.84 Long term (current) use of oral hypoglycemic drugs; Z87.891 Personal history of nicotine dependence
CPT/HCPCS: 99211

== ENCOUNTER → 2021-11-10 | Day surgery (SDC) | payer BC ==
[2021-11-08 15:34] VITALS: BMI 35.9
[~2021-11-10] MED LIST changes: +IV FLUID CONTINUATION 800 ML IV ONE; +LIDOCAINE 1% (10MG/ML) FOR IV START INTRADERMA PRN; +MIDAZOLAM 2 MG/2 ML VIAL ONE; +ROPIVACAINE 5MG/ML 20ML VIAL ONE; +fentaNYL (PF) 50 MCG/ML 2 ML AMP ONE; +methylPREDNISolone ACETATE 40 MG/ML 1 ML VIAL ONE
[2021-11-10 12:06] VITALS: TEMP 98
[2021-11-10 12:06] LABS: Glucose,Whole Blood 128 mg/dL (75-99)
--- NOTE | 2021-11-10 13:06 | P.PCN ---
Date of Procedure: 11/10/21 Procedure(s) Performed: PREOPERATIVE DIAGNOSIS: 1-thoracic Spondylosis with Facet Arthropathy without myelopathy. 2- Lumber lumbar lordosis with lumbar facet arthropathy POSTOPERATIVE DIAGNOSIS: Same as preoperative diagnosis. PROCEDURES : Bilateral Radiofrequency thermocoagulation, T11, T12 ,L1 medial branch, with fluoroscopic guidance (fluoroscopy images available in the radiology department) ( to denervate the facet joint at BILATERAL T11-12, T12-L1 ). ANESTHESIA: Monitored anesthesia care as per anesthesia department . EBL: Minimal PROCEDURE INDICATION: The patient with low back pain secondary to lumbar facet arthropathy who had more than 50% relief of her pain with previous diagnostic lumbar medial branch block with bupivacaine. PROCEDURE DESCRIPTION / TECHNIQUE: The patient was seen and identified in the preoperative area. Risks, benefits, complications, including but not limited to risk of infection ,bleeding , allergic reactions to the medications and no complete pain releife , and alternatives were discussed with the patient, the p atient agreed to proceed with the procedure and signed the consent. IV was started. Vital signs remained stable throughout the procedure. Patient was taken to the OR and time out was completed. The patient was placed in the prone position on the procedure table. The lumber area was prepped and draped in the usual sterile fashion. . Vital signs were closely monitored during the procedure .IV sedation was used during the procedure to decrease patients anxiety. Using AP and then oblique fluoroscopy, the ``eye of the Saravanan dog corresponding to the connection between the superior and transverse articular processes of right T11 ,T12 ,L1 were identified, marked, and localized with 1% lidocaine. Subsequently, a 20 [id number] radiofrequency cannula with a 10-mm active tip was advanced guided by fluoroscopy to each of the``eyes of the Saravanan dog at right T11,T12 ,L1. Each site then underwent sensory testing at 50 Hz and 0 to 1 volt and motor testing at 2.5 Hz and 0 to 3 volt with local stimulation, but no radicular symptoms down the legs. Thereafter each sites underwent radiofrequency thermocoagulation at 80 degrees celsius for 90 seconds after injecting 0.5 ml of PF Ropivacaine 1ml, then after the thermocoagulation done , 1 ml of the block solution containing Depo-Medrol 20 mg and 3 ml of Ropivacaine 0.5% was injected at the right T11, T12 ,L1 , levels after negativ e aspiration of CSF and blood and with no paresthesias. Cannulas were retracted while injecting lidocaine 1% until the needle is out. The same procedure was repeated at the level of Left T11, T12 ,L1 levels. At the end of the procedure, the skin was cleansed and bandages were applied. COMPLICATIONS: No acute complications. DISPOSITION / PLANS: The patient was placed in a supine position and tra nsferred to the recovery area in a stable condition for observation and was discharged from the recovery room after meeting discharge criteria. Home discharge instructions given to the patient by the staff. The patient was reexamined prior to discharge. The patient will schedule a follow up in the clinic in 2-4 weeks.
--- NOTE | 2021-11-10 13:13 | FL ---
Fluoroscopy INDICATION: Pain FINDINGS: Fluoroscopy time: 18 seconds. Images obtained: 7. IMPRESSIONS: 1. Documentation of fluoroscopy.
--- NOTE | 2021-11-10 13:46 | XR ---
EXAMINATION TYPE: XR chest 1V portable DATE OF EXAM: 11/10/2021 COMPARISON: 06/02/2021 INDICATION: Pneumothorax, post pain management. TECHNIQUE: Single frontal view of the chest is obtained. FINDINGS: The heart size is normal. The pulmonary vasculature is normal. The lungs are clear. No suspicious pneumothorax is evident. IMPRESSION: 1. No acute pulmonary process.
[2021-11-10 14:18] VITALS: BP 134/81; PULSE 71; RESP 16
== END ==
LOC: ORPAIN 11:45
PROVIDERS: ATTEND Specialist
DX: M47.814 Spondylosis without myelopathy or radiculopathy, thoracic region (principal)
CPT/HCPCS: 64633; 64634; 71045; J2250; J1030; J3010; J2795

== ENCOUNTER → 2021-11-30 | Outpatient (CLI) | payer BC ==
[2021-11-30 13:11] VITALS: BP 160/88; PULSE 63; RESP 18
--- NOTE | 2021-11-30 13:26 | P.PN ---
Subjective Progress Note Date: 11/30/21 Principal diagnosis: A 61 yr old male with a history of severe and chronic mid -low back pain secondary to thoracolumbar degenerative disc diseases and spondylosis with facet arthropathy presents today for evaluation status post bilateral RFA T11- T12, T12-L1. He states he expressed 85% pain relief status post procedure. Pain level is currently at 2 out of 10 in intensity, achy, sore in the lower aspects of the thoracic spine and upper aspects of his lumbar spine without radiation of pain. Pain escalates as high as 10 out of 10 in intensity with bending, twisting or lifting. Pain is relieved with medications, cannabis use, injections, alternating heat and ice the ice works better, physical therapy in the past which provided no relief, massage therapy integrated physical therapy and rest. Patient also states he received a steroid injection at [facility] this month but is unsure what it was. He is interested in getting an RFA for his lumbar spine. Will obtain records. Interventional pain procedures completed include RFA BL T11-T12, T12-L1 Patient is currently on [place], Neurontin by Dr Seymour Patient denies any side effects of the medication(s), denies excessive drowsiness or sleepiness, denies suicidal ideation and reports that the current pain medication is helping to control the pain and improve activities of daily living. Patient denies any motor or sensory deficits. Patient denies any fever or night sweats, denies any change in the bowel movements or urination. Physical Examination: -Constitutional: Cooperative. Not in acute distress . -HEENT: Neck is supple. No lymphadenopathy. No thyromegaly. Normal thyroid size. Eyes: No ptosis , no icterus, no photophobia. ENT: No auditory deficits. Normal oropharynx. No Thrush. - Respiratory: Chest clear to auscultations bilaterally. No wheezing. No rhonchi. - Cardiovascular: Regular rate and rhythm. S1 / S2 , no S3 , no S4. - Gastrointestinal: Abdomen soft no tenderness. Bowel sounds positive in all four quadrants. No organomegaly. - Genitourinary: Deferred. - Neurologic: Cranial nerve II to XII intact. No focal neurological deficits. - Psychatric: Alert & oriented x 3. Matching mood & appropriate affect. Judgment and insight intact. - Lymphatic: No Lymphadenopathy. - Musculoskeletal: Cervical spine: Muscle bulk/ tone/ strength in the bilateral upper extremities normal. Facet loading test cervical area positive. Lumbar spine: Motor bulk/ tone/ strength lower extremities , thigh and legs : 5/5 Deep tendon reflexes : Normal Knee Jerk. Normal Ankle Jerk . Vertebral body tenderness to palpation over Lumbar Facet Loading Test positive Straight Leg Raise: positive at 30 degrees right side/ left side Gaenslen's Test positive Sacral spine : Severe tenderness over the Sacroiliac joint: right side / left side Range of motion: Flexion of the lumbar spine <60 degrees Range of motion: Extension of the lumbar spine <20 degrees Gaenslen's Test positive Karen test: positive right side / left side Assessment and plan: Chronic mid-low back pain secondary to thoracolumbar degenerative disc disease , spondylosis with facet arthropathy without myelopathy Obtain records from [facility] for latest series of injection(s) of the lumbar spine. May return to the clinic within 4 week for a reevaluation. All patient questions answered I have spent 31 minutes on patient care today. Dr Orlando was available by phone for the evaluation of this patient. The time was used to review the medical records including relevant urine studies and Prescription history (MAPs), review of the available imaging, evaluation and examination of the patient, coordination of care with the medical staff and if applicable referring physicians, as well as creation of the medical record Objective - Vital Signs Vital signs: Vital Signs Temp Pulse 63 11/30/21 13:00 Resp 18 11/30/21 13:00 BP 160/88 11/30/21 13:00 Pulse Ox 95 11/30/21 13:00 PQRS Measure Charge Sheet Mode of Arrival: Ambulatory - Pain Location Back Non-Pharmacological Interventions: Heat, Home Exercise, Ice, Inactivity, Massage, Physical Therapy, Position/Reposition, Stretching Pharmacological Interventions: Block, PRN Medication, Scheduled Medication Lower Back Non-Pharmacological Interventions: Heat, Home Exercise, Ice, Inactivity, Massage, Physical Therapy, Position/Reposition, Stretching Pharmacological Interventions: PRN Medication, Scheduled Medication PQRS Narrative: Smoking Status Former smoker Blood Pressure 160/88 Pain Intensity [Lower Back] 4 Pain Intensity [Back] 2 Scale Used Numeric (1 - 10) Hx Alcohol Use (MH) No Home Medications: Ambulatory Orders HYDROcodone/APAP 7.5-325MG [[place] 7.5-325] 1 tab PO BID 02/21/17 Hydrochlorothiazide [hydroCHLOROthiazide] 12.5 mg PO DAILY 02/21/17 Metoprolol Succinate [Toprol XL] 50 mg PO HS 02/21/17 Pregabalin [Lyrica] 100 mg PO TID 02/21/17 amLODIPine [Norvasc] 5 mg PO QAM 02/21/17 rOPINIRole HCL [Requip] 0.5 mg PO HS 02/21/17 sitaGLIPtin [Januvia] 100 mg PO DAILY 02/21/17 Zantac Otc Prn 1 tab PO DAILY PRN 09/14/21
== END ==
LOC: PNWHC3 12:13
PROVIDERS: ATTEND Specialist
DX: M51.35 Other intervertebral disc degeneration, thoracolumbar region (principal); M47.815 Spondylosis without myelopathy or radiculopathy, thoracolumbar region; G89.29 Other chronic pain; M19.90 Unspecified osteoarthritis, unspecified site; Z87.891 Personal history of nicotine dependence
CPT/HCPCS: 99211

== ENCOUNTER → 2021-12-28 | Outpatient (CLI) | payer BC ==
[2021-12-28 12:30] VITALS: BP 157/93; PULSE 75; RESP 16; TEMP 97.8
--- NOTE | 2021-12-28 12:38 | P.PAINPG ---
PQRS Measure Charge Sheet Comment: A 61 yr old male with a history of severe and chronic low back pain secondary to lumbar degenerative disc diseases and lumbar spondylosis with facet arthropathy presents today for evaluation for lower back pain. Pain level is currently at 3 out of 10 in intensity, burning in character in the lower aspects of his lumbar spine and sacral area with radiation of electric pain down to the bilateral lower extremities. Pain is provoked by bending and lifting as his source of employment is [employer]. Pain is alleviated with medications, injections, ice, repositioning, laying supine and rest. Interventional pain procedures completed include BL RFA T11-T12, T12-L1 Patient is currently on [place], Lyrica from his PCP. Patient denies any side effects of the medication(s), denies excessive drowsiness or sleepiness, denies suicidal ideation and reports that the current pain medication is helping to control the pain and improve activities of daily living. Patient denies any motor or sensory deficits. Patient denies any fever or night sweats, denies any change in the bowel movements or urination. Physical Examination: -Constitutional: Cooperative. Not in acute distress . -HEENT: Neck is supple. No lymphadenopathy. No thyromegaly. Normal thyroid size. Eyes: No ptosis , no icterus, no photophobia. ENT: No auditory deficits. Normal oropharynx. No Thrush. - Respiratory: Chest clear to auscultations bilaterally. No wheezing. No rhonchi. - Cardiovascular: Regular rate and rhythm. S1 / S2 , no S3 , no S4. - Gastrointestinal: Abdomen soft no tenderness. Bowel sounds positive in all four quadrants. No organomegaly. - Genitourinary: Deferred. - Neurologic: Cranial nerve II to XII intact. No focal neurological deficits. - Psychatric: Alert & oriented x 3. Matching mood & appropriate affect. Judgment and insight intact. - Lymphatic: No Lymphadenopathy. - Musculoskeletal: Cervical spine: Muscle bulk/ tone/ strength in the bilateral upper extremities normal Vertebral body tenderness to palpation over Facet loading test positive Thoracic spine Muscle bulk / tone/ strength in the bilateral paraspinal muscles normal Vertebral body tender to palpation over Facet loading test positive Lumbar spine: Motor bulk/ tone/ strength lower extremities , thigh and legs : 5/5 Deep tendon reflexes : Normal Knee Jerk. Normal Ankle Jerk . Vertebral body tenderness to palpation over Lumbar Facet Loading Test positive over BL L4-L5, L5-S1 Straight Leg Raise: positive at 30 degrees right side/ left side Gaenslen's Test positive Sacral spine : Severe tenderness over the Sacroiliac joint: right side / left side Range of motion: Flexion of the lumbar spine <60 degrees Range of motion: Extension of the lumbar spine <20 degrees Gaenslen's Test positive Thomas's Test positive Karen test: positive right side / left side Thigh Thrust Test Sacral Thrust Test Assessment and plan: Chronic low back pain secondary to lumbar degenerative disc disease , lumbar spondylosis with facet arthropathy without myelopathy Recommendation of physical therapy integrated with massage re: M51.36 3 times per week 6 weeks. Patient may follow-up at this clinic within 6 weeks for reevaluation of pain level and discussion of further treatment options if necessary. Risks, benefits of procedure discussed and pt verbalized understanding. Denies anticoagulant use or medical history of diabetes. All patient questions answered MAPS reviewed and it was appropriate. I have spent 31 minutes on patient care today. Dr Orlando was available by phone for the evaluation of this patient. The time was used to review the medical records including relevant urine studies and Prescription history (MAPs), review of the available imaging, evaluation and examination of the patient, coordination of care with the medical staff and if applicable referring physicians, as well as creation of the medical record PQRS Narrative: Smoking Status Former smoker Hx Alcohol Use (MH) No Home Medications: Ambulatory Orders HYDROcodone/APAP 7.5-325MG [[place] 7.5-325] 1 tab PO BID 02/21/17 Hydrochlorothiazide [hydroCHLOROthiazide] 12.5 mg PO DAILY 02/21/17 Metoprolol Succinate [Toprol XL] 50 mg PO HS 02/21/17 Pregabalin [Lyrica] 100 mg PO TID 02/21/17 amLODIPine [Norvasc] 5 mg PO QAM 02/21/17 rOPINIRole HCL [Requip] 0.5 mg PO HS 02/21/17 sitaGLIPtin [Januvia] 100 mg PO DAILY 02/21/17 Zantac Otc Prn 1 tab PO DAILY PRN 09/14/21 Controlled Substance Measures - Controlled Substance Measures Is patient prescribed a controlled substance at discharge?: No
== END ==
LOC: PNWHC3 12:00
PROVIDERS: ATTEND Specialist
DX: M51.36 Other intervertebral disc degeneration, lumbar region (principal); M47.816 Spondylosis without myelopathy or radiculopathy, lumbar region; G89.29 Other chronic pain; Z87.891 Personal history of nicotine dependence
CPT/HCPCS: 99211

== ENCOUNTER → 2022-02-19 | Outpatient (CLI) | payer BC ==
[2022-02-19 14:15] VITALS: BP 136/83; PULSE 61; RESP 18; TEMP 97.8
--- NOTE | 2022-02-19 15:07 | P.PAINPG ---
PQRS Measure Charge Sheet Comment: A 61 yr old male with a history of severe and chronic low back pain secondary to lumbar degenerative disc diseases, disc herniation and lumbar spondylosis with facet arthropathy presents today for evaluation of lower back pain status post completion of physical therapy. Pain level is currently at 3/10 in intensity, constant, localized in lower back w radiation to R buttocks >L and occasionally to the feet BL. Pain is provoked by standing/walking for periods of 15 min or more. Pain is alleviated with PT for 6 weeks integrated with PT, medications ([place], Lyrica from his PCP), ice, heat, home exercise regimen, repositioning and rest. Interventional pain procedures completed include BL RFA T11-T12, T12-L1 Patient is currently on [place], Lyrica from his PCP Patient denies any side effects of the medication(s), denies excessive drowsiness or sleepiness, denies suicidal ideation and reports that the current pain medication is helping to control the pain and improve activities of daily living. Patient denies any motor or sensory deficits. Patient denies any fever or night sweats, denies any change in the bowel movements or urination. Physical Examination: -Constitutional: Cooperative. Not in acute distress . - Neurologic: Cranial nerve II to XII intact. No focal neurological deficits. - Psychatric: Alert & oriented x 3. Matching mood & appropriate affect. Judgment and insight intact. - Musculoskeletal: Cervical spine: Muscle bulk/ tone/ strength in the bilateral upper extremities normal Vertebral body tenderness to palpation over Spurling test positive Distraction test positive Facet loading test positive Thoracic spine Muscle bulk / tone/ strength in the bilateral paraspinal muscles normal Vertebral body tender to palpation over Facet loading test positive Lumbar spine: Motor bulk/ tone/ strength lower extremities , thigh and legs : 5/5 Deep tendon reflexes : Normal Knee Jerk. Normal Ankle Jerk . Vertebral body tenderness to palpation over Lumbar Facet Loading Test positive over BL L4-L5, L5-S1 w accompanying paraspinal TTP Straight Leg Raise: positive at 30 degrees right side/ left side Gaenslen's Test positive Sacral spine : Severe tenderness over the Sacroiliac joint: right side / left side Range of motion: Flexion of the lumbar spine <60 degrees Range of motion: Extension of the lumbar spine <20 degrees Gaenslen's Test positive Thomas's Test positive Karen test: positive right side / left side Thigh Thrust Test Sacral Thrust Test Assessment and plan: Chronic low back pain secondary to lumbar degenerative disc disease , lumbar spondylosis with facet arthropathy without myelopathy Recommendation of BL facet block of the medial branches L4-L5, L5-S1 #1. May need a series of injections, up until RFA, for optimal pain relief. Risks, benefits of procedure discussed and pt verbalized understanding. Denies anticoagulant use and admits to a medical history of diabetes. Protocol for discontinuation/ continuation of medications lisa procedure discussed. All patient questions answered MAPS reviewed and it was appropriate. I have spent less than 30 minutes on patient care today. Dr Orlando was available by phone for the evaluation of this patient. The time was used to review the medical records including relevant urine studies and Prescription history (MAPs), review of the available imaging, evaluation and examination of the patient, coordination of care with the medical staff and if applicable referring physicians, as well as creation of the medical record PQRS Narrative: Smoking Status Former smoker Hx Alcohol Use (MH) No Home Medications: Ambulatory Orders HYDROcodone/APAP 7.5-325MG [[place] 7.5-325] 1 tab PO BID 02/21/17 Metoprolol Succinate [Toprol XL] 50 mg PO HS 02/21/17 Pregabalin [Lyrica] 100 mg PO TID 02/21/17 amLODIPine [Norvasc] 5 mg PO QAM 02/21/17 hydroCHLOROthiazide 12.5 mg PO DAILY 02/21/17 rOPINIRole HCL [Requip] 0.5 mg PO HS 02/21/17 sitaGLIPtin [Januvia] 100 mg PO DAILY 02/21/17 Zantac Otc Prn 1 tab PO DAILY PRN 09/14/21 Controlled Substance Measures - Controlled Substance Measures Is patient prescribed a controlled substance at discharge?: No
== END ==
LOC: PNWHC3 11:00
PROVIDERS: ATTEND Specialist
DX: M48.061 Spinal stenosis, lumbar region without neurogenic claudication (principal); M51.36 Other intervertebral disc degeneration, lumbar region; I10 Essential (primary) hypertension; E78.5 Hyperlipidemia, unspecified; E03.9 Hypothyroidism, unspecified; M19.90 Unspecified osteoarthritis, unspecified site; M06.9 Rheumatoid arthritis, unspecified; Z87.891 Personal history of nicotine dependence
CPT/HCPCS: 99211

== ENCOUNTER 2022-04-06 12:30 | Day surgery (SDC) | payer BC ==
[~2022-04-06 12:30] MED LIST changes: -IV FLUID CONTINUATION 800 ML IV ONE; -MIDAZOLAM 2 MG/2 ML VIAL ONE; -ROPIVACAINE 5MG/ML 20ML VIAL ONE; -fentaNYL (PF) 50 MCG/ML 2 ML AMP ONE; -methylPREDNISolone ACETATE 40 MG/ML 1 ML VIAL ONE
[2022-04-06 13:13] VITALS: TEMP 96.8
[2022-04-06 13:27] LABS: Glucose,Whole Blood 124 mg/dL (70-110)
[2022-04-06] MEDS ORDERED: ROPIVACAINE 5MG/ML 20ML VIAL ONE (13:38)
[2022-04-06] MEDS ORDERED: fentaNYL (PF) 50 MCG/ML 2 ML AMP ONE (13:38)
[2022-04-06] MEDS ORDERED: methylPREDNISolone ACETATE 40 MG/ML 1 ML VIAL ONE (13:38)
[2022-04-06] MEDS ORDERED: MIDAZOLAM 2 MG/2 ML VIAL ONE (13:38)
--- NOTE | 2022-04-06 13:56 | P.PCN ---
Date of Procedure: 04/06/22 Procedure(s) Performed: PREOPERATIVE DIAGNOSIS : 1- Lumbar spondylosis with Facet Arthropathy without myelopathy . 2- Lumber degenerative disc disease POSTOPERATIVE DIAGNOSIS: 1- Lumbar spondylosis with Facet Arthropathy without myelopathy . 2- Lumber degenerative disc disease PROCEDURE: Diagnostic bilateral L3 , L4 , and L5 medial branch block under fluoroscopy guidance(fluoroscopy images available in the radiology Department ) ( To target the facet joint between bilateral L4-5 , and L5-S1 )# 1st ANESTHESIA:, Monitored anesthesia care as per anesthesia department. . EBL: Minimal COMPLICATION: None PROCEDURE INDICATION: Chronic low back pain secondary to Facet arthropathy unresponsive to conservative treatment. PROCEDURE DESCRIPTION: the patient was seen and identified in the preop holding area , risks and benefits and possible complications of the procedure and alternative were discussed with the patient, and the patient agreed to proceed with the procedure and signed the consent and vital signs monitored during the procedure and fluoroscopy was used to maximize the benefit and accuracy of the needle placement, and sedation was given to decrease patient anxiety, patient was taken to the procedure room and placed in prone position vital signs monitored in the back prepped with chlorhexidine X3 then under strict sterile technique using a right oblique fluoroscopy ,the junction of the transverse process and the superior articulating process of the right L3 , L4 , and L5 vertebra which corresponding to the fluoroscopy image of the eye of the Saravanan dog on the block side for the medial branches and subsequently , after local infiltration of skin and subcu tissuies with Ropivacaine 0.5 % , one mL at each level ,then 22-gauge 5 inches long Quincke-type needles , 3 needle was used , each one of them placed at the junction of the base of the transverse process and the superior articular process at the appropriate level, and the needle was advanced until the periosteum contacted, needle placement confirmed with AP oblique and lateral view and after appropriate needle placement confirmed, and after negative aspiration for heme and CSF and there was no paresthesia 1-1/2 mL of Ropivacaine 0.5% mixed with 20 mg Depo-Medrol , then half mL injected at each level after negative aspiration the needle subsequently removed and the same procedure repeated for the left side at left side at L3 , L4 and L5 levels. At the end of the procedure and the needles removed and a bandage applied after the skin was cleaned the cleaning solution patient taken to recovery room in stable condition and monitors in the recovery room for 20-30 minutes and discharged home in stable condition after discharge criteria met and patient will follow up with the pain clinic in 2-4 weeks
[2022-04-06] MEDS ORDERED: IV FLUID CONTINUATION 1,000 ML IV ONE (14:00)
[2022-04-06 14:03] VITALS: RESP 18
--- NOTE | 2022-04-06 14:10 | FL ---
Fluoroscopy INDICATION: Pain FINDINGS: Fluoroscopy time: 9 seconds. Images obtained: 4. IMPRESSIONS: 1. Documentation of fluoroscopy.
[2022-04-06 14:18] VITALS: BP 132/78; PULSE 60
== END 2022-04-06 14:31 | disposition home or self-care (01) ==
LOC: ORPAIN 12:30
PROVIDERS: ATTEND Specialist
DX: M51.36 Other intervertebral disc degeneration, lumbar region (principal); M47.816 Spondylosis without myelopathy or radiculopathy, lumbar region; G89.29 Other chronic pain; M54.50 Low back pain, unspecified; I10 Essential (primary) hypertension; F12.90 Cannabis use, unspecified, uncomplicated; E11.40 Type 2 diabetes mellitus with diabetic neuropathy, unspecified; M48.061 Spinal stenosis, lumbar region without neurogenic claudication; G25.81 Restless legs syndrome; F41.9 Anxiety disorder, unspecified; Z79.899 Other long term (current) drug therapy
CPT/HCPCS: 64493; 64494; J2250; J1030; J3010; J2795

== ENCOUNTER → 2022-04-19 | Outpatient (CLI) | payer BC ==
[2022-04-19 13:04] VITALS: BP 189/97; PULSE 60; RESP 18; TEMP 98
--- NOTE | 2022-04-19 13:41 | P.PAINPG ---
PQRS Measure Charge Sheet Comment: A 61 yr old male with a history of severe and chronic low back pain secondary to lumbar degenerative disc diseases and lumbar spondylosis with facet arthropathy without myelopathy presents today for evaluatino s/p BL MBB L3-L5. Pt states he experienced 80% pain relief x 3 days s/p procedure. Pain level is c urrently at 4 /10 in intensity, constant, localized in the lower lumbar spine, burning/achy/sore in character w shooting towards BL buttocks and LEs, R>L. Pain is provoked by activity. Pain is alleviated with PT x 4 wks in January 2022, massage integrated w PT, ice, meds ([place] from his PCP, [place]), laying supine, repositioning and rest. Interventional pain procedures completed include BL MBB L3-L5 Patient is currently on Patient denies any side effects of the medication(s), denies excessive drowsiness or sleepiness, denies suicidal ideation and reports that the current pain medication is helping to control the pain and improve activities of daily living. Patient denies any motor or sensory deficits. Patient denies any fever or night sweats, denies any change in the bowel movements or urination. Physical Examination: -Constitutional: Cooperative. Not in acute distress . - Neurologic: Cranial nerve II to XII intact. No focal neurological deficits. - Psychatric: Alert & oriented x 3. Matching mood & appropriate affect. Judgment and insight intact. - Musculoskeletal: Cervical spine: Muscle bulk/ tone/ strength in the bilateral upper extremities normal Vertebral body tenderness to palpation over Spurling test positive Distraction test positive Facet loading test positive Thoracic spine Muscle bulk / tone/ strength in the bilateral paraspinal muscles normal Vertebral body tender to palpation over Facet loading test positive Lumbar spine: Motor bulk/ tone/ strength lower extremities , thigh and legs : 5/5 Deep tendon reflexes : Normal Knee Jerk. Normal Ankle Jerk . Vertebral body tenderness to palpation over Lumbar Facet Loading Test positive w BL TTP over BL L4-L5, L5-S1 facets Straight Leg Raise: positive at 30 degrees right side/ left side Gaenslen's Test positive Sacral spine : Severe tenderness over the Sacroiliac joint: right side / left side Range of motion: Flexion of the lumbar spine <60 degrees Range of motion: Extension of the lumbar spine <20 degrees Gaenslen's Test positive Thomas's Test positive Karen test: positive right side / left side Thigh Thrust Test Sacral Thrust Test Assessment and plan: Chronic low back pain secondary to lumbar degenerative disc disease , lumbar spondylosis with facet arthropathy without myelopathy Recommendation of BL MBB L4-L5, L5-S1 #2. May need a series of injections, up until RFA, for optimal pain relief. Risks, benefits of procedure discussed and pt verbalized understanding. Denies anticoagulant use and admits to a medical history of diabetes. Protocol for discontinuation/ continuation of meds lisa procedure discussed. All patient questions answered I have spent less than 30 minutes on patient care today. Dr Oralndo was available by phone for the evaluation of this patient. The time was used to revi ew the medical records including relevant urine studies and Prescription history (MAPs), review of the available imaging, evaluation and examination of the patient, coordination of care with the medical staff and if applicable referring physicians, as well as creation of the medical record PQRS Narrative: Smoking Status Former smoker Hx Alcohol Use (MH) No Home Medications: Ambulatory Orders HYDROcodone/APAP 7.5-325MG [[place] 7.5-325] 1 tab PO BID PRN 02/21/17 Metoprolol Succinate [Toprol XL] 50 mg PO HS 02/21/17 Pregabalin [Lyrica] 100 mg PO TID 02/21/17 amLODIPine [Norvasc] 5 mg PO QAM 02/21/17 hydroCHLOROthiazide 12.5 mg PO DAILY 02/21/17 rOPINIRole HCL [Requip] 0.5 mg PO HS 02/21/17 sitaGLIPtin [Januvia] 100 mg PO DAILY 02/21/17 Controlled Substance Measures - Controlled Substance Measures Is patient prescribed a controlled substance at discharge?: No
== END ==
LOC: PNWHC3 12:19
PROVIDERS: ATTEND Specialist
DX: M47.816 Spondylosis without myelopathy or radiculopathy, lumbar region (principal); M51.36 Other intervertebral disc degeneration, lumbar region; Z88.5 Allergy status to narcotic agent; G89.29 Other chronic pain
CPT/HCPCS: 99211

== ENCOUNTER 2022-05-18 11:30 | Day surgery (SDC) | payer BC ==
[2022-05-16 13:11] VITALS: BMI 37.2
[2022-05-18 11:42] VITALS: TEMP 96.9
[2022-05-18 11:59] LABS: Glucose,Whole Blood 115 mg/dL (70-110)
[2022-05-18] MEDS ORDERED: ROPIVACAINE 5 MG/ML 20 ML AMPULE ONE (12:10)
[2022-05-18] MEDS ORDERED: fentaNYL (PF) 50 MCG/ML 2 ML AMP ONE (12:10)
[2022-05-18] MEDS ORDERED: MIDAZOLAM 2 MG/2 ML VIAL ONE (12:10)
[2022-05-18] MEDS ORDERED: methylPREDNISolone ACETATE 40 MG/ML 1 ML VIAL ONE (12:10)
--- NOTE | 2022-05-18 12:24 | P.PCN ---
Date of Procedure: 05/18/22 Procedure(s) Performed: PREOPERATIVE DIAGNOSIS : 1- Lumbar spondylosis with Facet Arthropathy without myelopathy . 2- Lumber degenerative disc disease POSTOPERATIVE DIAGNOSIS: 1- Lumbar spondylosis with Facet Arthropathy without myelopathy . 2- Lumber degenerative disc disease PROCEDURE: Diagnostic bilateral L3 , L4 , and L5 medial branch block under fluoroscopy guidance(fluoroscopy images available in the radiology Department ) ( To target the facet joint between bilateral L4-5 , and L5-S1 )# 2nd ANESTHESIA:, Monitored anesthesia care as per anesthesia department. . EBL: Minimal COMPLICATION: None PROCEDURE INDICATION: Chronic low back pain secondary to Facet arthropathy unresponsive to conservative treatment. PROCEDURE DESCRIPTION: the patient was seen and identified in the preop holding area , risks and benefits and possible complications of the procedure and alternative were discussed with the patient, and the patient agreed to proceed with the procedure and signed the consent and vital signs monitored during the procedure and fluoroscopy was used to maximize the benefit and accuracy of the needle placement, and sedation was given to decrease patient anxiety, patient was taken to the procedure room and placed in prone position vital signs monitored in the back prepped with chlorhexidine X3 then under strict sterile technique using a right oblique fluoroscopy ,the junction of the transverse process and the superior articulating process of the right L3 , L4 , and L5 vertebra which corresponding to the fluoroscopy image of the eye of the Saravanan dog on the block side for the medial branches and subsequently , after local infiltration of skin and subcu tissuies with Ropivacaine 0.5 % , one mL at each level ,then 22-gauge 5 inches long Quincke-type needles , 3 needle was used , each one of them placed at the junction of the base of the transverse process and the superior articular process at the appropriate level, and the needle was advanced until the periosteum contacted, needle placement confirmed with AP oblique and lateral view and after appropriate needle placement confirmed, and after negative aspiration for heme and CSF and there was no paresthesia 1-1/2 mL of Ropivacaine 0.5% mixed with 20 mg Depo-Medrol , then half mL injected at each level after negative aspiration the needle subsequently removed and the same procedure repeated for the left side at left side at L3 , L4 and L5 levels. At the end of the procedure and the needles removed and a bandage applied after the skin was cleaned the cleaning solution patient taken to recovery room in stable condition and monitors in the recovery room for 20-30 minutes and discharged home in stable condition after discharge criteria met and patient will follow up with the pain clinic in 2-4 weeks
[2022-05-18] MEDS ORDERED: IV FLUID CONTINUATION 800 ML IV ONE (12:30)
[2022-05-18 12:33] VITALS: RESP 16
[2022-05-18 12:47] VITALS: BP 124/75; PULSE 59
--- NOTE | 2022-05-18 12:54 | FL ---
Intraoperative/procedural fluoroscopic services were provided. Total fluoroscopy time is 21 seconds w ith a total of 4 submitted images to PACS. Please see the operative/procedural note for further detai ls.
== END 2022-05-18 13:01 | disposition home or self-care (01) ==
LOC: ORPAIN 11:30
PROVIDERS: ATTEND Specialist
DX: M47.816 Spondylosis without myelopathy or radiculopathy, lumbar region (principal); M51.36 Other intervertebral disc degeneration, lumbar region; I10 Essential (primary) hypertension; E11.9 Type 2 diabetes mellitus without complications; Z87.891 Personal history of nicotine dependence; K21.9 Gastro-esophageal reflux disease without esophagitis; Z79.899 Other long term (current) drug therapy
CPT/HCPCS: 64493; 64494; J2250; J1030; J3010; J2795

== ENCOUNTER → 2022-06-06 | Outpatient (CLI) | payer BC ==
[2022-06-06 12:21] VITALS: BP 170/104; PULSE 60; RESP 17
--- NOTE | 2022-06-06 14:42 | P.PAINPG ---
Objective - Vital Signs Vital signs: Vital Signs Temp Pulse 60 06/06/22 12:13 Resp 17 06/06/22 12:13 BP 170/104 06/06/22 12:13 Pulse Ox 97 06/06/22 12:13 FiO2 PQRS Measure Charge Sheet Mode of Arrival: Ambulatory Comment: A 61 yr old male with a history of severe and chronic low back pain secondary to lumbar DDD and spondylosis with facet arthropathy without myelopathy presents today for evaluation s/p BL MBB L3-L5 #2. Pt states he experienced 80% pain relief x 4 days s/p procedure. Pain level is currently at /10 in intensity, constant, localized in the lower aspect of the lumbar spine, sharp in character w shooting towards the BLEs. Pain is provoked by standing/ walking for periods of 15 min or more. Pain is alleviated with use of a massage gun daily, medications ([place]), injections, repositioning and rest. Interventional pain procedures completed include BL MBB L3-L5 x2 Patient is currently on [place] from his PCP Patient denies any side effects of the medication(s), denies excessive drowsines s or sleepiness, denies suicidal ideation and reports that the current pain medication is helping to control the pain and improve activities of daily living. Patient denies any motor or sensory deficits. Patient denies any fever or night sweats, denies any change in the bowel movements or urination. Physical Examination: -Constitutional: Cooperative. Not in acute distress . - Neurologic: Cranial nerve II to XII intact. No focal neurological deficits. - Psychatric: Alert & oriented x 3. Matching mood & appropriate affect. Judgment and insight intact. - Musculoskeletal: Cervical spine: Muscle bulk/ tone/ strength in the bilateral upper extremities normal Vertebral body tenderness to palpation over Spurling test positive Distraction test positive Facet loading test positive Thoracic spine Muscle bulk / tone/ strength in the bilateral paraspinal muscles normal Vertebral body tender to palpation over Facet loading test positive Lumbar spine: Motor bulk/ tone/ strength lower extremities , thigh and legs : 5/5 Deep tendon reflexes : Normal Knee Jerk. Normal Ankle Jerk . Vertebral body tenderness to palpation over Lumbar Facet Loading Test positive jump reflex over BL L4-L5, L5-S1 facets Straight Leg Raise: positive at 30 degrees right side/ left side Gaenslen's Test positive Sacral spine : Severe tenderness over the Sacroiliac joint: right side / left side Range of motion: Flexion of the lumbar spine <60 degrees Range of motion: Extension of the lumbar spine <20 degrees Gaenslen's Test positive Karen test: positive right side / left side Thigh Thrust Test Sacral Thrust Test Assessment and plan: Chronic low back pain secondary to lumbar degenerative disc disease, spondylosis with facet arthropathy without myelopathy Recommendation of BL RFA L4-L5, L5-S1. Pt exhibited sufficient and satisfactory pain relief s/p procedures. Risks, benefits of procedure discussed and pt verbalized understanding. Admits to anticoagulant use or medical history of diabetes. Protocol for discontinuation/ continuation of medications lisa procedure discussed. All patient questions answered I have spent less than 30 minutes on patient care today. Dr Orlando was available by phone for the evaluation of this patient. The time was used to review the medical records including relevant urine studies and Prescription history (MAPs), review of the available imaging, evaluation and examination of the patient, coordination of care with the medical staff and if applicable referring physicians, as well as creation of the medical record - Pain Location Lower Back Non-Pharmacological Interventions: Heat, Home Exercise, Ice, Massage, Physical Therapy, Stretching Pharmacological Interventions: Block, Scheduled Medication PQRS Narrative: Smoking Status Former smoker Blood Pressure 170/104 Pain Intensity [Lower Back] 4 Scale Used Numeric (1 - 10) Hx Alcohol Use (MH) No Home Medications: Ambulatory Orders HYDROcodone/APAP 7.5-325MG [[place] 7.5-325] 1 tab PO BID PRN 02/21/17 Metoprolol Succinate [Toprol XL] 50 mg PO HS 02/21/17 Pregabalin [Lyrica] 100 mg PO TID 02/21/17 amLODIPine [Norvasc] 5 mg PO QAM 02/21/17 hydroCHLOROthiazide 12.5 mg PO DAILY 02/21/17 rOPINIRole HCL [Requip] 0.5 mg PO HS 02/21/17 sitaGLIPtin [Januvia] 100 mg PO DAILY 02/21/17 Controlled Substance Measures - Controlled Substance Measures Is patient prescribed a controlled substance at discharge?: No
== END | disposition home or self-care (01) ==
LOC: PNWHC3 11:58
PROVIDERS: ATTEND Specialist
DX: M47.816 Spondylosis without myelopathy or radiculopathy, lumbar region (principal)
CPT/HCPCS: 99211

== ENCOUNTER 2022-07-12 11:28 | Day surgery (SDC) | payer BC ==
[2022-07-10 11:47] VITALS: BMI 38.5
[2022-07-12 12:13] VITALS: TEMP 97.8
[2022-07-12 12:15] LABS: Glucose,Whole Blood 116 mg/dL (70-110)
[2022-07-12] MEDS ORDERED: MIDAZOLAM 2 MG/2 ML VIAL ONE (12:59)
[2022-07-12] MEDS ORDERED: methylPREDNISolone ACETATE 40 MG/ML 1 ML VIAL ONE (12:59)
[2022-07-12] MEDS ORDERED: ROPIVACAINE 5 MG/ML 20 ML AMPULE ONE (12:59)
[2022-07-12] MEDS ORDERED: fentaNYL (PF) 50 MCG/ML 2 ML AMP ONE (12:59)
[2022-07-12] MEDS ORDERED: IV FLUID CONTINUATION 1,000 ML IV ONE (13:29)
[2022-07-12 13:41] VITALS: RESP 16
[2022-07-12 13:53] VITALS: BP 121/76; PULSE 60
--- NOTE | 2022-07-12 15:40 | FL ---
EXAMINATION TYPE: FL guided pain mgmt statistic DATE OF EXAM: 07/12/2022 FLUOROSCOPY Fluoroscopy time of 23 seconds was used during right-sided lumbar facet radiofrequency ablation. 6 i mage/s document/s the procedure.
--- NOTE | 2022-07-13 12:13 | P.PCN ---
Date of Procedure: 07/12/22 Procedure(s) Performed: PREOPERATIVE DIAGNOSIS: 1-Lumbar Spondylosis with Facet Arthropathy without myelopathy. 2- Lumber degenerative disc disease. POSTOPERATIVE DIAGNOSIS: 1- Lumbar Spondylosis with Facet Arthropathy without myelopathy. 2- Lumber degenerative disc disease. PROCEDURES : Bilateral Radiofrequency thermocoagulation, L3 , L4 , and L5 medial branch, with fluoroscopic guidance (fluoroscopy images available in the radiology department) ( to denervate the facet joint at bilateral L4-5 ,and L5-S1 levels ). ANESTHESIA: Moderate sedation with intravenous versed 2 mg and fentaneyl 100 mcg, and local infiltration with Ropivacaine 0.5 % . Sedation started at 13:01 , Finished at 13:23 EBL: Minimal PROCEDURE INDICATION: The patient with low back pain secondary to lumbar facet arthropathy who had more than 80% relief of her pain with previous diagnostic lumbar medial branch block with bupivacaine. PROCEDURE DESCRIPTION / TECHNIQUE: The patient was seen and identified in the preoperative area. Risks, benefits, complications, including but not limited to risk of infection ,bleeding , allergic reactions to the medications and no complete pain releife , and alternatives were discussed with the patient, the patient agreed to proceed with the procedure and signed the consent. IV was started. Vital signs remained stable throughout the procedure. Patient was taken to the OR and time out was completed. The patient was placed in the prone position on the procedure table. The lumber area was prepped and draped in the usual sterile fashion. . Vital signs were closely monitored during the procedure .IV sedation was used during the procedure to decrease patients anxiety. Using AP and then oblique fluoroscopy, the ``eye of the Saravanan dog corresponding to the connection between the superior and transverse articular processes of right L3, L4, and L5 were identified, marked, and localized with 1% lidocaine. Subsequently, a [id number] radiofrequency cannula with a 10- mm active tip was advanced guided by fluoroscopy to each of the``eyes of the Saravanan dog at right L3, L4, and L5. Each site then underwent sensory testing at 50 Hz and 0 to 1 volt and motor testing at 2.5 Hz and 0 to 3 volt with local stimulation, but no radicular symptoms down the legs. Thereafter each sites underwent radiofrequency thermocoagulation at 80 degrees celsius for 90 seconds after injecting 0.5 ml of PF Ropivacaine 1ml, then after the thermocoagulation done , 1 ml of the block solution containing Depo-Medrol 20 mg and 3 ml of Ropivacaine 0.5% was injected at the right L3 , L4 , and L5 , levels after negative aspiration of CSF and blood and with no paresthesias. Cannulas were retracted while injecting lidocaine 1% until the needle is out. The same procedure was repeated at the level of Left L3, L4, and L5 levels. At the end of the procedure, the skin was cleansed and bandages were applied. COMPLICATIONS: No acute complications. DISPOSITION / PLANS: The patient was placed in a supine position and transferred to the recovery area in a stable condition for observation and was discharged from the recovery room after meeting discharge criteria. Home discharge instructions given to the patient by the staff. The patient was reexamined prior to discharge. The patient will schedule a follow up in the clinic in 2-4 weeks.
== END 2022-07-12 13:59 | disposition home or self-care (01) ==
LOC: ORPAIN 11:28
PROVIDERS: ATTEND Specialist
DX: M47.816 Spondylosis without myelopathy or radiculopathy, lumbar region (principal); M47.817 Spondylosis without myelopathy or radiculopathy, lumbosacral region
CPT/HCPCS: 64635; 64636; J2250; J1030; J3010; J2795; 99152; 99153

== ENCOUNTER → 2022-08-01 | Outpatient (CLI) | payer BC ==
[2022-08-01 12:41] VITALS: BP 158/88; PULSE 60; RESP 18; TEMP 98.1
--- NOTE | 2022-08-01 14:34 | P.PAINPG ---
PQRS Measure Charge Sheet Comment: A 62 yr old male with a history of severe and chronic low back pain secondary to lumbar DDD and spondylosis with facet arthropathy without myelopathy presents today for evaluation s/p BL L3-L5. Pt states he experienced 75 % pain relief s/p procedure. Pain level is provoked at 9 /10 in intensity, constant, localized in the lumbar spine, dull/ achy in character w shooting towards the R hip, R knee and R foot. Pain is provoked every morning upon awakening. Pain is alleviated with PT x 6 wks in Mar 2022, PT integrated w massage, heat, ice, meds ([place], Lyrica), sitting and rest. Interventional pain procedures completed include BL RFA T12-L2, BL RFA L3-L5 Patient is currently on [place], Lyrica Patient denies any side effects of the medication(s), denies excessive drowsiness or sleepiness, denies suicidal ideation and reports that the current pain medication is helping to control the pain and improve activities of daily living. Patient denies any motor or sensory deficits. Patient denies any fever or night sweats, denies any change in the bowel movements or urination. Physical Examination: -Constitutional: Cooperative. Not in acute distress . - Neurologic: Cranial nerve II to XII intact. No focal neurological deficits. - Psychatric: Alert & oriented x 3. Matching mood & appropriate affect. J udgment and insight intact. - Musculoskeletal: Cervical spine: Muscle bulk/ tone/ strength in the bilateral upper extremities normal Vertebral body tenderness to palpation over Spurling test positive Distraction test positive Facet loading test positive Thoracic spine Muscle bulk / tone/ strength in the bilateral paraspinal muscles normal Vertebral body tender to palpation over Facet loading test positive Lumbar spine: Motor bulk/ tone/ strength lower extremities , thigh and legs : 5/5 Deep tendon reflexes : Normal Knee Jerk. Normal Ankle Jerk . Vertebral body tenderness to palpation over Lumbar Facet Loading Test positive Straight Leg Raise: positive at 30 degrees right side/ left side Gaenslen's Test positive Sacral spine : Severe tenderness over the Sacroiliac joint: right side / left side Range of motion: Flexion of the lumbar spine <60 degrees Range of motion: Extension of the lumbar spine <20 degrees Gaenslen's Test positive Karen test: positive right side / left side Thigh Thrust Test Sacral Thrust Test Assessment and plan: Chronic low back pain secondary to lumbar degenerative disc disease, spondylosis with facet arthropathy without myelopathy Pt exhibited suffiicent and substantial pain relief w RFA. Will manage residual pain w home remedies and may return to this clinic on an as needed basis. Stated he will follow up w Dr Hilario. All patient questions answered I have spent less than 30 minutes on patient care today. Dr Orlando was available by phone for the evaluation of this patient. The time was used to review the medical records including relevant urine studies and Prescription h istory (MAPs), review of the available imaging, evaluation and examination of the patient, coordination of care with the medical staff and if applicable referring physicians, as well as creation of the medical record PQRS Narrative: Smoking Status Former smoker Hx Alcohol Use (MH) No Home Medications: Ambulatory Orders HYDROcodone/APAP 7.5-325MG [[place] 7.5-325] 1 tab PO BID PRN 02/21/17 Metoprolol Succinate [Toprol XL] 50 mg PO HS 02/21/17 Pregabalin [Lyrica] 100 mg PO TID 02/21/17 amLODIPine [Norvasc] 5 mg PO QAM 02/21/17 hydroCHLOROthiazide 12.5 mg PO DAILY 02/21/17 rOPINIRole HCL [Requip] 0.5 mg PO HS 02/21/17 sitaGLIPtin [Januvia] 100 mg PO DAILY 02/21/17 Controlled Substance Measures - Controlled Substance Measures Is patient prescribed a controlled substance at discharge?: No
== END ==
LOC: PNWHC3 12:10
PROVIDERS: ATTEND Specialist
DX: M47.816 Spondylosis without myelopathy or radiculopathy, lumbar region (principal); M51.36 Other intervertebral disc degeneration, lumbar region; Z87.891 Personal history of nicotine dependence
CPT/HCPCS: 99211

== ENCOUNTER 2022-10-17 10:47 | Day surgery (SDC) | payer BC ==
[2022-10-12 16:15] VITALS: BMI 38.5
[~2022-10-17 10:47] MED LIST changes: +ALPRAZolam 0.25 MG TAB PO PRN; +ALPRAZolam 0.5 MG TAB PO PRN; +ASPIRIN 325 MG TAB PO ONE; -LACTATED RINGERS 1,000 ML IV SCH; -LIDOCAINE 1% (10MG/ML) FOR IV START INTRADERMA PRN; +NITROGLYCERIN SL TABS 0.4 MG TAB SUBLINGUAL PRN
[2022-10-17 11:31] LABS: Glucose,Whole Blood 113 mg/dL (70-110)
[2022-10-17] MEDS ORDERED: SODIUM CHLORIDE 0.9% 1,000 ML IV ONE (11:35)
[2022-10-17] MEDS ORDERED: VERAPAMIL 2.5 MG/ML 2 ML AMP ONE (11:49)
[2022-10-17] MEDS ORDERED: HEPARIN SODIUM 1,000 UN/ML (10ML VL) ONE (12:19)
[2022-10-17] MEDS ORDERED: fentaNYL (PF) 50 MCG/ML 2 ML AMP ONE (12:19)
[2022-10-17] MEDS ORDERED: fentaNYL (PF) 50 MCG/ML 2 ML AMP IV ONE (12:31)
[2022-10-17] MEDS ORDERED: LIDOCAINE 1% INJ 10MG/ML (5 ML VIAL-PF) SQ ONE (12:33)
[2022-10-17] MEDS ORDERED: VERAPAMIL SYRINGE (5 MG/10 ML) INTRAARTER ONE (12:34)
[2022-10-17] MEDS ORDERED: HEPARIN SODIUM 1,000 UN/ML (10ML VL) IV ONE (12:41)
[2022-10-17] MEDS ORDERED: PRASUGREL 10 MG TAB ONE ×2 (12:47)
[2022-10-17] MEDS ORDERED: PRASUGREL 10 MG TAB PO ONE (12:48)
[2022-10-17] MEDS ORDERED: NITROGLYCERIN 1000MCG/10ML SYRINGE INTRACORON ONE (12:55)
[2022-10-17] MEDS ORDERED: IOPAMIDOL-370 125ML BTL INJ ONE (13:01)
[2022-10-17] MEDS ORDERED: ZOLPIDEM 5 MG TAB PO PRN (13:29)
[2022-10-17] MEDS ORDERED: RX INFO: IV CONTRAST WAS GIVEN 1 EACH MISC MISCELLANE PRN (13:29)
[2022-10-17] MEDS ORDERED: ATROPINE SULFATE 0.1 MG/ML 10ML SYRINGE IV PRN (13:29)
[2022-10-17] MEDS ORDERED: MAG HYDROX/AL HYDROX/SIMETH 30 ML CUP PO PRN (13:29)
[2022-10-17] MEDS ORDERED: NITROGLYCERIN SL TABS 0.4 MG TAB SUBLINGUAL PRN (13:29)
[2022-10-17] MEDS ORDERED: SODIUM CHLORIDE 0.9% 1,000 ML in EMPTY BAG 1 BAG IV SCH (13:30)
--- NOTE | 2022-10-17 13:38 | P.CARDCATH ---
Date of Procedure: 10/17/22 Description of Procedure: Cardiac Catheterization: The patient is a 62-year-old male with a known history of diabetes and hypertension who has been complaining of recent onset exertional chest discomfort, radiating to the jaw. Recommendations were made regarding cardiac catheterization, the risks and the complications were discussed with the patient who is in full understanding and agreement. Procedure Description: Patient was brought to laboratory asst in fasting semi-sedated state after receiving Fentanyl and Benadryl achieiving moderate conscious sedated state. Using Xylocaine Anesthesia and Seldinger technique, a 6-Marshallese sheath was introduced in the right radial artery . Subsequently, selective coronary angiography was performed using a 5-Marshallese 3.5 bend Temo catheter. Multiple views of the coronary artery including hemiaxial views were obtained. The 5-Marshallese pigtail catheter was used to cross the aortic valve and LVEDP was calculated. PCI: After removing the catheters a 6-Marshallese EBU 3.75 guiding catheter was introduced into system and after cannulating the left main a 0.014 BMW J-wire was advanced and positioned in the distal LAD subsequently a 2.5 x 12 mm Treck balloon was advanced into inflation at 8 eric were done after removing the balloon a 2.75 x 38 mm Xience arslan point stent was deployed at 16 eric, after removing the balloon at 3.25 x 12 mm Xience arslan point was deployed proximal to the first one at 16 eric after removing the balloon an IVUS [place] catheter was advanced and images were obtained. After removing the catheter 3.5 x 20 NC Treck balloon was advanced and multiple inflation at 20 eric were done. Subsequently the wire was withdrawn back and again a catheter images were obtained and revealed stable successful stenting. Following that, catheter and sheath were removed. Hemostasis was obtained with deployment of TR band . There was no immediate complication. Patient was returned to room in stable condition. Of note, the patient received a total of 7000 units of intravenous heparin as well as intra- arterial verapamil. He received an oral loading dose of Effient and his ACT was monitored. He had chest discomfort with the inflations but no significant EKG changes. Findings: Fluoroscopy: Calcification of the LAD was noted. Left main: This is a large size vessel, bifurcating to LAD and left circumflex, left main has no high-grade stenosis LAD: This is a large size vessel, tapers down in the distal third, gives rise to a large diagonal branch. The proximal LAD has an 80% stenosis, the mid LAD has an 85-90% stenosis, the distal vessel is small in caliber. Left circumflex: This is a nondominant vessel giving rise to 3 obtuse marginal branch, the left circumflex has diffuse intimal disease of 20% with no high- grade stenosis RCA: This is a large dominant vessel, bifurcating into PDA and PLV the mid RCA has an eccentric 30-40% plaque the rest of the vessel has diffuse intimal disease with no high-grade stenosis, the PDA reaches to the inferoapical wall Left Ventriculogram: Not performed Hemodynamics: There was no gradient across the aortic valve, LVEDP was 16-20 mmHg Conclusion: 1. Calcified LAD 2. Critical stenosis in the proximal and mid LAD 3. Mild to moderate disease in the left circumflex and the RCA 4. Successful stenting of the proximal and mid LAD with intravascular ultrasound imaging Recommendations: The patient will continue on aspirin and Effient for 6 months without any interruption in addition to aggressive coronary risks modification. The findings and the recommendations were discussed with the patient and the family and they were in full understanding and agreement. Duration of sedation is 42 minutes.
[2022-10-17] MEDS: SODIUM CHLORIDE 0.9% 1,000 ML in EMPTY BAG 1 BAG IV SCH ×2 (14:26→14:32)
[2022-10-17] MEDS: HYDROcodone/APAP 7.5-325MG 1 EACH TAB PO PRN ×2 (14:37→20:33)
[2022-10-17] MEDS: PREGABALIN 100 MG CAP PO SCH ×2 (15:04→20:33)
[2022-10-17] MEDS ORDERED: METOPROLOL SUCCINATE (ER) 50 MG TAB.ER.24H PO SCH (21:00)
[2022-10-18] MEDS: SODIUM CHLORIDE 0.9% 1,000 ML in EMPTY BAG 1 BAG IV SCH ×2 (03:51→03:52)
[2022-10-18] MEDS: HYDROcodone/APAP 7.5-325MG 1 EACH TAB PO PRN (06:46)
[2022-10-18 07:23] VITALS: BP 150/90; PULSE 57; RESP 17; TEMP 98
--- NOTE | 2022-10-18 07:32 | P.PN ---
Subjective Progress Note Date: 10/18/22 PROGRESS NOTE The patient is a 62-year-old male with a known history of hypertension, hyperlipidemia and diabetes mellitus who presented with symptoms of new onset angina pectoris. He underwent cardiac catheterization and was found to have critical stenosis in the long segment of the LAD. He underwent stenting of the LAD. He's doing well this morning, he denies any chest discomfort, dizziness or palpitations. He is in sinus mechanism. Medications: Aspirin, amlodipine 5 mg daily, Lipitor 40 mg daily, Plavix 75 mg daily, metoprolol succinate 50 mg daily, Requip, Lyrica, Tradjenta PHYSICAL EXAMINATION: Blood pressure 136/80 heart rate 57 LUNGS: Clear to auscultation HEART: Regular rate and rhythm, S1, S2. No S3. systolic ejection murmur ABDOMEN: Soft, nontender, no organomegaly EXTREMETIES: No edema, right radial intact LAB: EKG with no acute segment changes IMPRESSION: 1. Status post stenting of the LAD 2. Hypertension 3. Hyperlipidemia 4. And diabetes mellitus PLAN: 1. Continue present therapy 2. Discharged home today 3. And follow-up as an outpatient 4. Depending on his progress further recommendations will be made Objective - Vital Signs Vital signs: Vital Signs Temp 98.0 F 10/18/22 07:00 Pulse 57 L 10/18/22 07:00 Resp 17 10/18/22 07:00 BP 150/90 10/18/22 07:00 Pulse Ox 98 10/18/22 05:11 FiO2 Intake & Output 10/17/22 10/18/22 10/18/22 18:59 06:59 18:59 Intake Total 200 Balance 200 Weight 132.7 kg Intake: IV 200 Other: # Voids 1 2 - Labs Labs: Abnormal Lab Results - Last 24 Hours (Table) 10/17/22 Range/Units 11:20 POC Glucose (mg/dL) 113 H (70-110) mg/dL
[2022-10-18 08:01] LABS: Basophils % (A) 1 %; Eosinophils # (A) 0.2 k/uL (0-0.7); Eosinophils % (A) 3 %; HCT 50.4 % (39.0-53.0); HGB 17.3 gm/dL (13.0-17.5); Lymphocytes # (A) 1.3 k/uL (1.0-4.8); Lymphocytes % (A) 18 %; MCH 31.9 pg (25.0-35.0); MCHC 34.2 g/dL (31.0-37.0); MCV 93.1 fL (80.0-100.0); Mean Platelet Volume 6.7; Monocytes # (A) 0.5 k/uL (0-1.0); Monocytes % (A) 7 %; Neutrophils # (A) 4.9 k/uL (1.3-7.7); Neutrophils % (A) 70 %; Platelet Count 192 k/uL (150-450); RBC 5.41 m/uL (4.30-5.90); RDW 12.9 % (11.5-15.5)
[2022-10-18 08:10] LABS: African American GFR (CKD) >90 (>60 ml/min/1.73 sqM); Anion Gap 7 mmol/L; Blood Urea Nitrogen 17 mg/dL (9-20); Carbon Dioxide 24 mmol/L (22-30); Chloride 105 mmol/L (98-107); Glucose 123 mg/dL (74-99); Non-African American GFR(CKD) >90 (>60 ml/min/1.73 sqM); Potassium 4.6 mmol/L (3.5-5.1); Sodium 136 mmol/L (137-145)
[2022-10-18] MEDS: PREGABALIN 100 MG CAP PO SCH (08:36)
[2022-10-18] MEDS ORDERED: ATORVASTATIN 40 MG TAB PO SCH (09:00)
[2022-10-18] MEDS ORDERED: CLOPIDOGREL 75 MG TAB PO SCH (09:00)
[2022-10-18] MEDS ORDERED: ASPIRIN 81 MG PO SCH (09:00)
[2022-10-18] MEDS ORDERED: LINAGLIPTIN 5 MG TABLET PO SCH (09:00)
[2022-10-18] MEDS ORDERED: amLODIPine 5 MG TAB PO SCH (09:00)
== END 2022-10-18 11:40 | disposition home or self-care (01) ==
LOC: CATHCVL 10:47 → 6NMEDSUR 13:13 → CATHCVL 10-18 11:40
PROVIDERS: ATTEND Internal Medicine Interventional Cardiology
DX: I25.119 Atherosclerotic heart disease of native coronary artery with unspecified angina pectoris (principal); I10 Essential (primary) hypertension; E78.5 Hyperlipidemia, unspecified; E11.9 Type 2 diabetes mellitus without complications; Z79.82 Long term (current) use of aspirin; Z79.01 Long term (current) use of anticoagulants; Z79.84 Long term (current) use of oral hypoglycemic drugs; Z79.899 Other long term (current) drug therapy
CPT/HCPCS: 93458; 92978; 99152; 99153 ×2; 94760; 80048; 85025; C9600; J2001; J3010; J1644; Q9967